=== PATIENT | female | born 1935 | race Caucasian/White ===

== ENCOUNTER → 2017-12-18 12:42 | Outpatient (CLI) | payer MEDICARE, OTHER, SELFPAY ==
--- NOTE | 2017-12-18 | DI.MRI.S_ITS ---
PROCEDURE: MR CERVICAL SPINE WO CON INDICATIONS: CERVICALAGIA TECHNIQUE: Noncontrast sagittal T1 spin echo and T2 fast spin echo, sagittal STIR, foraminal oblique sagittal T2 fast spin echo, and axial gradient echo or T2 fast spin echo through the cervical spine. COMPARISON: None. FINDINGS: Image quality: Excellent. Alignment and Curvature: There is minimal anterolisthesis seen at C2-C3. There is minimal retrolisthesis seen at C5-C6. Bone Marrow: Marrow demonstrates normal overall signal. Spinal Cord: Visualized spinal cord has normal size and signal. No cerebellar tonsillar herniation. Paraspinous Soft Tissues: No paravertebral masses. Prevertebral soft tissues are normal in thickness. C2-C3: Moderate loss of disc height is seen. Loss of disc signal is seen. A mild degree of generalized disc osteophyte complex is seen. Mild facet joint hypertrophy is seen. No significant neural foraminal or central canal narrowing are seen. C3-C4: Moderate loss of disc height is seen. Loss of disc signal is seen. A mild degree of generalized disc osteophyte complex is seen. Moderate facet hypertrophy is seen, left worse than right. There is mild left-sided and no right-sided neural foraminal narrowing seen and no central canal narrowing is seen. C4-C5: Mild to moderate loss of disc height and disc signal are seen. Mild to moderate disc osteophyte complex is seen, which is eccentric to the right. At least moderate facet hypertrophy is seen. There is moderate to severe bilateral neural foraminal narrowing seen. Moderate central canal narrowing is seen. C5-C6: Moderate loss of disc height is seen. Loss of disc signal is seen. Moderate disc osteophyte complex is seen, which is eccentric to the right. Uncovertebral joint hypertrophy is seen, which is more prominent on the right than on the left. Moderate facet joint hypertrophy is seen. Moderate to severe bilateral neural foraminal narrowing is seen. Moderate to severe central canal narrowing is seen, with associated mass effect upon the ventral spinal cord. C6-C7: Mild to moderate loss of disc height and disc signal are seen in moderate disc osteophyte complex is seen, with a central disc extrusion. The disc extrusion is best demonstrated on series 4 image 6. Uncovertebral joint hypertrophy is seen at this level. Moderate facet joint hypertrophy is seen. There is moderate to severe bilateral neural foraminal narrowing seen, right worse than left. At least moderate central canal narrowing is seen, with mass effect upon the ventral spinal cord. C7-T1: Mild loss of disc height is seen. Loss of disc signal is seen. A mild degree of generalized disc osteophyte complex is seen. No significant neural foraminal or central canal narrowing are seen. IMPRESSION: Multiple levels of cervical spine degenerative change are seen, which are overall most prominent at the C6-C7 level. Dictated by: Manohar Feliciano M.D. on 12/18/2017 at 14:18 Approved by: Manohar Feliciano M.D. on 12/18/2017 at 14:24
== END ==
PROVIDERS: PCP Internal Medicine; Visit Provider Internal Medicine
DX: M50.323 Other cervical disc degeneration at C6-C7 level (principal)
CPT/HCPCS: 72141

== ENCOUNTER → 2017-12-24 08:52 | Outpatient (CLI) | payer MEDICARE, OTHER, SELFPAY ==
[2017-12-24 10:30] LABS: BUN Creatinine Ratio 17.8 (6-22); Blood Urea Nitrogen 16 mg/dL (7-17); Calcium 9.5 mg/dL (8.4-10.2); Carbon Dioxide 29 mmol/L (22-32); Chloride 105 mmol/L (98-107); Cholesterol 188 mg/dL (140-199); Estimated Glomerular Filt Rate > 60.0 mL/min (>60); Glucose 88 mg/dL (80-110); HDL Cholesterol 83 mg/dL (40-60); HEMOLYSIS < 15 (0-50); LDL Cholesterol Calculated 91 mg/dL (<100); Potassium 4.2 mmol/L (3.4-5.1); Sodium 145 mmol/L (137-145); Triglycerides 71 mg/dL (35-150)
[2017-12-24 11:00] LABS: TSH w/ Reflex to FT4 1.57 uIU/mL (0.47-4.68)
== END ==
PROVIDERS: PCP Internal Medicine; Visit Provider Internal Medicine
DX: I10 Essential (primary) hypertension (principal); E03.9 Hypothyroidism, unspecified
CPT/HCPCS: 36415; 80048; 80061; 84443

== ENCOUNTER → 2018-11-21 13:37 | Outpatient (CLI) | payer MEDICARE, OTHER, SELFPAY | PROVIDERS: PCP Physician Assistant; Visit Provider Physician Assistant | DX: Z78.0 Asymptomatic menopausal state (principal); R29.890 Loss of height; Z87.891 Personal history of nicotine dependence; Z82.62 Family history of osteoporosis | CPT/HCPCS: 77080 ==

== ENCOUNTER → 2018-12-09 08:23 | Outpatient (CLI) | payer MEDICARE, OTHER, SELFPAY ==
[2018-12-09 09:44] LABS: Creatinine Urine Random 60.6 mg/dL
[2018-12-09 09:48] LABS: Microalbumi Creatinin Ratio Ur 9.9 ug/mg CR (<30); Microalbumin Urine Random < 0.6 mg/dL (0-1.6)
[2018-12-09 09:50] LABS: Alanine Aminotransferase 16 IU/L (9-52); Albumin 4.4 g/dL (3.5-5.0); Albumin Globulin Ratio 1.4 (1.0-2.8); Alkaline Phosphatase 103 U/L (38-126); Aspartate Aminotransferase 22 IU/L (14-36); Bilirubin Total 1.8 mg/dL (0.2-1.3); Blood Urea Nitrogen 8 mg/dL (7-17); Calcium 9.5 mg/dL (8.4-10.2); Carbon Dioxide 29 mmol/L (22-32); Chloride 103 mmol/L (98-107); Estimated Glomerular Filt Rate > 60.0 mL/min (>60); Globulin 3.1 g/dL (1.7-4.1); Glucose 86 mg/dL (80-110); HEMOLYSIS < 15 (0-50); Potassium 4.6 mmol/L (3.4-5.1); Sodium 140 mmol/L (137-145); Total Protein 7.5 g/dL (6.3-8.2)
[2018-12-09 10:14] LABS: Thyroid Stimulating Hormone 1.46 uIU/mL (0.47-4.68)
== END ==
PROVIDERS: PCP Physician Assistant; Visit Provider Physician Assistant
DX: G20 Parkinson's disease (principal); I10 Essential (primary) hypertension; Z51.81 Encounter for therapeutic drug level monitoring
CPT/HCPCS: 36415; 80053; 82043; 82570; 84443

== ENCOUNTER → 2019-06-03 11:23 | Outpatient (CLI) | payer MEDICARE, OTHER, SELFPAY ==
--- NOTE | 2019-06-03 | DI.MG.S_ITS ---
BILATERAL DIGITAL SCREENING MAMMOGRAM 3D/2D WITH CAD: 06/03/2019 CLINICAL: Routine screening. Comparison is made to exams dated: 08/05/2012 mammogram, 08/03/2011 mammogram, and 04/20/2010 mammogram - [facility]. The tissue of both breasts is heterogeneously dense. This may lower the sensitivity of mammography. Current study was also evaluated with a Computer Aided Detection (CAD) system. No significant masses, calcifications, or other findings are seen in either breast. There has been no significant interval change. IMPRESSION: NEGATIVE There is no mammographic evidence of malignancy. A 1 year screening mammogram is recommended. This exam was interpreted at Station ID: [id number]. NOTE: For mammograms, a report in lay terms will be sent to the patient. Approximately 15% of breast malignancies will not be visualized mammographically. In the management of a palpable breast mass, a negative mammogram must not discourage biopsy of a clinically suspicious lesion. Electronically Signed By: Mk [email or web address]/kaz:06/03/2019 19:32:16 letter sent: Normal Exam ACR BI-RADS Category 1: Negative [id number]
== END ==
PROVIDERS: PCP Physician Assistant; Referring Provider Physician Assistant; Visit Provider Physician Assistant
DX: Z12.31 Encounter for screening mammogram for malignant neoplasm of breast (principal)
CPT/HCPCS: 77063; 77067

== ENCOUNTER → 2020-03-31 13:30 | Outpatient (CLI) | payer MEDICARE, OTHER, SELFPAY ==
[2020-03-31 15:06] LABS: HEMOLYSIS < 15 (0-50); Iron 127 ug/dL (37-170)
[2020-03-31 15:17] LABS: Percent Iron Saturation 39 % (15-50); Total Iron Binding Capacity 323 ug/dL (265-497); Transferrin 256 mg/dL (206-381)
[2020-03-31 15:38] LABS: Ferritin 40 ng/mL (11-264)
== END ==
PROVIDERS: PCP Physician Assistant; Referring Provider Physician Assistant; Visit Provider Physician Assistant
DX: R79.0 Abnormal level of blood mineral (principal)
CPT/HCPCS: 36415; 82728; 83540; 83550

== ENCOUNTER → 2020-07-13 11:39 | Outpatient (CLI) | payer MEDICARE, OTHER, SELFPAY ==
[2020-07-13 12:39] LABS: Add Manual Diff / Slide Review NO; Basophils Absolute Auto 100 /uL (0-100); Basophils Percent Auto 1.3 % (0-2); Eosinophils Absolute Auto 100 /uL (0-450); Eosinophils Percent Auto 1.6 % (2-4); Hemoglobin 12.4 g/dL (12.0-16.0); Lymphocytes Absolute Auto 1600 /uL (1100-4500); Lymphocytes Percent Auto 26.8 % (25-40); Mean Corpuscular HGB Conc 33.6 % (30-36); Mean Corpuscular Hemoglobin 32.4 PG (26-34); Mean Corpuscular Volume 96.4 fL (80-100); Monocytes Absolute Auto 600 /uL (0-900); Monocytes Percent Auto 9.7 % (3-14); Neutrophils Absolute Auto 3700 /uL (1500-7000); Neutrophils Percent Auto 60.6 % (50-75); Platelet Count 269 X10^3/uL (150-400); Red Blood Cell Count 3.84 X10^6/uL (4.0-5.2); Red Cell Distribution Width 12.3 % (11.6-14.8); White Blood Cell Count 6.1 X10^3/uL (4.5-11.0)
[2020-07-13 13:18] LABS: Total Iron Binding Capacity 191 ug/dL (265-497)
[2020-07-13 13:29] LABS: Ferritin 46 ng/mL (11-264)
[2020-07-13 14:31] LABS: Iron 162 ug/dL (37-170)
--- NOTE | 2020-08-09 08:02 | P.HOLT.S_ITS ---
[employer] Report Referral & Results Date Patient Seen: 07/13/20 Requesting provider: Cally Garsia Indication: Palpitations Duration of monitoring (days): 12 Diary information: There were 25 patient triggered events and 13 patient diary entries Patient triggered events were associated with (within 45 seconds) sinus rhythm, SVT, PVCs, PACs, ventricular bigeminy, and ventricular trigeminy Patient diary entries were associated with (within 45 seconds) sinus rhythm, PACs, PVCs, and ventricular trigeminy Data: Less than 1% of identified beats were supraventricular ectopic in origin Approximately 1.5% of identified beats were ventricular ectopic in origin which would classify them as occasional, this included a 56.2nd run of ventricular trigeminy and a 2nd run of ventricular bigeminy There were 17 runs of SVT with the fastest being 20 beats at a rate of 187 beats per minute, and the longest lasting 17 beats at a rate of 96 beats per minute which suggest more atrial tachycardia than true SVT 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 Clinical correlation suggested
== END ==
PROVIDERS: PCP Physician Assistant; Referring Provider Physician Assistant; Visit Provider Physician Assistant
DX: R00.2 Palpitations (principal); D64.9 Anemia, unspecified
CPT/HCPCS: 36415; 82728; 83540; 83550; 85025; 93246; 93248

== ENCOUNTER → 2020-10-20 08:14 | Outpatient (CLI) | payer MEDICARE, OTHER, SELFPAY ==
[2020-10-20 09:31] LABS: Alanine Aminotransferase 4 IU/L (<35); Albumin 4.3 g/dL (3.5-5.0); Albumin Globulin Ratio 1.7 (1.0-2.8); Alkaline Phosphatase 104 U/L (38-126); Aspartate Aminotransferase 25 IU/L (14-36); BUN Creatinine Ratio 16.9 (6-22); Bilirubin Total 2.4 mg/dL (0.2-1.3); Blood Urea Nitrogen 12 mg/dL (7-17); Calcium 9.9 mg/dL (8.4-10.2); Carbon Dioxide 27 mmol/L (22-32); Chloride 104 mmol/L (98-107); Cholesterol 182 mg/dL (140-199); Estimated Glomerular Filt Rate > 60.0 mL/min (>60); Globulin 2.6 g/dL (1.7-4.1); Glucose 92 mg/dL (80-110); HDL Cholesterol 101 mg/dL (40-60); HEMOLYSIS < 15 (0-50); LDL Cholesterol Calculated 67 mg/dL (<100); Potassium 4.3 mmol/L (3.4-5.1); Sodium 139 mmol/L (137-145); Total Protein 6.9 g/dL (6.3-8.2); Triglycerides 70 mg/dL (35-150)
[2020-10-20 10:33] LABS: Creatinine Urine Random 50.4 mg/dL
[2020-10-20 10:39] LABS: Microalbumi Creatinin Ratio Ur 17.8 ug/mg CR (<30); Microalbumin Urine Random 0.9 mg/dL (0-1.6)
== END ==
PROVIDERS: PCP Nurse Practitioner; Referring Provider Nurse Practitioner; Visit Provider Nurse Practitioner
DX: E03.9 Hypothyroidism, unspecified (principal); E78.5 Hyperlipidemia, unspecified; E80.4 Gilbert syndrome; I10 Essential (primary) hypertension; I49.9 Cardiac arrhythmia, unspecified; Z79.899 Other long term (current) drug therapy
CPT/HCPCS: 36415; 80053; 80061; 82043; 82570; 84443

== ENCOUNTER → 2020-10-24 14:41 | Outpatient (CLI) | payer MEDICARE, OTHER, SELFPAY ==
--- NOTE | 2020-10-24 14:44 | DI.US.S_ITS ---
PROCEDURE: US CAROTID DOPPLER BI INDICATIONS: RETINAL HEMORRHAGE TECHNIQUE: Color and pulse Doppler interrogation was performed of both carotid systems, with image documentation and velocity measurements. COMPARISON: None. FINDINGS: Stenosis calculations are based on SRU (Society of Radiologists in Ultrasound) criteria. Right side: Brachial blood pressure: 157/84 mm Hg. Common carotid artery peak systolic velocity: 75 cm/sec. Internal carotid artery peak systolic velocity: 58 cm/sec. Internal carotid artery end diastolic velocity: 16 cm/sec. External carotid artery peak systolic velocity: 76 cm/sec. ICA/CCA peak systolic ratio: 0 point . Rebollar scale imaging description: Mild calcific plaque at the bifurcation Percent internal carotid artery stenosis: Less than 50% . Vertebral artery: Flow direction is antegrade. Left side: Brachial blood pressure: 152/81 mm Hg. Common carotid artery peak systolic velocity: 1 L3 cm/sec. Internal carotid artery peak systolic velocity: 53 cm/sec. Internal carotid artery end diastolic velocity: 17 cm/sec. External carotid artery peak systolic velocity: 85 cm/sec. ICA/CCA peak systolic ratio: 0.5 . Rebollar scale imaging description: Mild calcific plaque at the bifurcation Percent internal carotid artery stenosis: Less than 50% . Vertebral artery: Flow direction is antegrade. IMPRESSION: 1. Less than 50% bilateral internal carotid artery stenosis . 2. Antegrade vertebral artery flow bilaterally. Dictated by: Vee Becerra M.D. on 10/25/2020 at 11:31 Approved by: Vee Becerra M.D. on 10/25/2020 at 11:32
== END ==
PROVIDERS: PCP Nurse Practitioner; Referring Provider Nurse Practitioner; Visit Provider Nurse Practitioner
DX: I65.23 Occlusion and stenosis of bilateral carotid arteries (principal); H35.60 Retinal hemorrhage, unspecified eye
CPT/HCPCS: 93880

== ENCOUNTER 2021-01-25 12:41 | Emergency (ER) | payer MEDICARE, OTHER, SELFPAY ==
[2021-01-25] VITALS (8 sets, daily range): BP systolic 172–183; BP diastolic 77–79; PULSE 68–77; RESP 14–20; TEMP 36.9; O2SAT 97–100; BMI 21.7
[2021-01-25 13:17] LABS: Add Manual Diff / Slide Review NO; Basophils Absolute Auto 0 /uL (0-100); Basophils Percent Auto 0.7 % (0-2); Eosinophils Absolute Auto 0 /uL (0-450); Eosinophils Percent Auto 0.4 % (2-4); Hematocrit 38.7 % (36-46); Hemoglobin 12.9 g/dL (12.0-16.0); Lymphocytes Absolute Auto 1600 /uL (1100-4500); Lymphocytes Percent Auto 24.8 % (25-40); Mean Corpuscular HGB Conc 33.3 % (30-36); Mean Corpuscular Volume 95.9 fL (80-100); Monocytes Absolute Auto 800 /uL (0-900); Monocytes Percent Auto 11.9 % (3-14); Neutrophils Absolute Auto 4100 /uL (1500-7000); Neutrophils Percent Auto 62.2 % (50-75); Platelet Count 290 X10^3/uL (150-400); Red Blood Cell Count 4.03 X10^6/uL (4.0-5.2); Red Cell Distribution Width 12.2 % (11.6-14.8); White Blood Cell Count 6.6 X10^3/uL (4.5-11.0)
[2021-01-25 13:27] LABS: COVID19 -Nasal RAPID Negative (Negative)
[2021-01-25] MEDS: SODIUM CHLORIDE 0.9% 500 ML 1000 ML IV (13:35)
[2021-01-25 13:39] LABS: Alanine Aminotransferase 12 IU/L (<35); Albumin 4.7 g/dL (3.5-5.0); Albumin Globulin Ratio 1.6 (1.0-2.8); Alkaline Phosphatase 96 U/L (38-126); Aspartate Aminotransferase 25 IU/L (14-36); BUN Creatinine Ratio 17.6 (6-22); Bilirubin Total 2.6 mg/dL (0.2-1.3); Blood Urea Nitrogen 13 mg/dL (7-17); Carbon Dioxide 27 mmol/L (22-32); Chloride 102 mmol/L (98-107); Estimated Glomerular Filt Rate > 60.0 mL/min (>60); Glucose 91 mg/dL (80-110); HEMOLYSIS < 15 (0-50); Lipase 67 U/L (23-300); Potassium 4.1 mmol/L (3.4-5.1); Sodium 138 mmol/L (137-145); Total Protein 7.7 g/dL (6.3-8.2)
[2021-01-25 13:40] LABS: Creatine Kinase 43 U/L (30-135); Magnesium 1.9 mg/dL (1.6-2.3)
--- NOTE | 2021-01-25 13:44 | ED.SYNCOPE ---
HPI - Syncope <Kasey Ho, KILN LABOURER-BC - Last Filed: 01/25/21 17:55> General Chief Complaint: Syncope Stated Complaint: possible syncope last night [facility] ref Time Seen by Provider: 01/25/21 12:52 Source: patient Mode of arrival: Family Vehicle Limitations: no limitations History of Present Illness HPI narrative: The patient is an 85-year-old female nonsmoker with history of Parkinson's disease who presents with a chief complaint of possible syncope last night. She states she was in the shower, felt woozy, so she ?threw herself on the bed.She states she passed out for approximately 30 minutes. However she knew what to look for because she is ?and experienced fainter.She notes that she had some hot and cold flashes before this happened, so her primary concern is COVID. She states she is fully vaccinated as COVID. She denies any chest pain shortness of breath, denies any weakness slurred speech or other acute concerns. She states she is here only for COVID test.Her head, states that she was laying on the bed. She states that she realized she fell asleep and left lights on last night, so she thought she would check to make sure she does not have COVID. Related Data Home Medications Medication Instructions Recorded Confirmed acetaminophen 325 mg capsule 325 mg PO Q6H PRN 06/05/18 01/25/21 (Tylenol) carbidopa ER 50 mg-levodopa 200 mg 1 tab PO BEDTIME 10/19/20 01/25/21 tablet,extended release ferrous sulfate 325 mg (65 mg 325 mg PO Q OTHER DAY tab 10/19/20 01/25/21 iron) tablet ropinirole 1 mg tablet 1 mg PO DAILY 10/19/20 01/25/21 Previous Rx's Medication Instructions Recorded carbidopa 25 mg-levodopa 100 mg See Rx Instructions PO TID #180 tab 10/19/20 tablet irbesartan 75 mg tablet 37.5 mg PO DAILY #45 tab 10/19/20 Synthroid 125 mcg tablet 125 mcg PO DAILY #90 tab NS 11/07/20 (levothyroxine) metronidazole 1 % topical gel 1 applic TOP DAILY #60 g 11/07/20 (Metrogel) Allergies Allergy/AdvReac Type Severity Reaction Status Date / Time lactose [LACTOSE] Allergy Intermediate GI upset Verified 01/25/21 12:28 latex [LATEX] Allergy Intermediate Redness Verified 01/25/21 12:28 and swelling Penicillins [PENICILLINS] Allergy Intermediate RASH Verified 01/25/21 12:28 benzocaine [BENZOCAINE] Allergy Mild RASH Verified 01/25/21 12:28 SWELLING iodine [IODINE] Allergy Mild RASH Verified 01/25/21 12:28 cyclosporine [CYCLOSPORINE] AdvReac Severe SHARP EYE Verified 01/25/21 12:28 PAIN Antihistamines - Alkylamine AdvReac Intermediate Profound Verified 01/25/21 12:28 Sun Sensitivity octinoxate [OCTINOXATE] AdvReac Intermediate Redness Verified 01/25/21 12:28 and swelling oxybenzone [OXYBENZONE] AdvReac Intermediate Redness Unverified 01/25/21 12:28 and swelling Review of Systems <ROBY Maher - Last Filed: 01/25/21 17:55> Review of Systems Narrative: GENERAL: Denies chills, fatigue, malaise, fever, sweats. HEENT: Denies sinus pain, ear pain, sore throat, difficulty swallowing, dizziness. RESPIRATORY: Denies dyspnea, cough, wheezing, hemoptysis, sputum. CARDIOVASCULAR: See HPI GASTROINTESTINAL: Denies nausea, vomiting, abdominal pain, diarrhea, constipation, melena. : Denies dysuria, frequency, incontinence, hematuria, urinary retention. MUSCULOSKELETAL: denies weakness, joint pain, or bony pain SKIN: Denies rash, skin lesions, or other NEUROLOGIC: Denies weakness, headache, numbness, change in speech, confusion, seizures, incoordination. PSYCHIATRIC: No concerning psychosocial issues. 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) Palpitations (08/07/12) Parkinson's disease (~2018) Premature beat (~2015) Rosacea (~1995) Tick fever (~1959) Tuberculosis (~1975) Vertigo (~1999) Surgical History Anesthesia Cataracts, bilateral (~2002) History of bunionectomy (~1995) History of cystoscopy (~1994) History of dilation and curettage (~2009) History of tonsillectomy (~1951) Status post removal of cervix (~1994) Family History Father Aplastic anemia Mother Scleroderma Brother Thrombosis Grandfather Cancer Grandmother Thrombosis Grandfather History of heart attack Grandmother Diabetes mellitus Social History Smoking Status: Former smoker second hand exposure: No alcohol intake: current (glass a wine with dinner every night) substance use type: does not use Smoking Status: Former smoker alcohol intake frequency: 0-2 drinks per day Substance Use Type: does not use Exam <ROBY Maher - Last Filed: 01/25/21 17:55> Narrative Exam Narrative: GENERAL: This is a well-nourished, well-developed patient, in no acute distress HEAD: Atraumatic. Normocephalic. No temporal or scalp tenderness. EYES: Pupils equal round and reactive. Extraocular motions intact. No scleral icterus. No injection or drainage. ENT: Nose without bleeding, purulent drainage or septal hematoma. Throat without erythema, tonsillar hypertrophy or exudate. Uvula midline. Airway patent. NECK: Trachea midline. No JVD or lymphadenopathy. Supple, nontender, no meningeal signs. CARDIOVASCULAR: Regular rate and rhythm RESPIRATORY: Clear to auscultation. Breath sounds equal bilaterally. No wheezes, rales, or rhonchi. No cough. No increased respiratory effort. No accessory muscles strict GASTROINTESTINAL: Abdomen soft, non-tender, nondistended. No hepato-splenomegaly, or palpable masses. No guarding. EXTREMITIES: No clubbing, cyanosis, or edema. No joint tenderness, effusion, or edema noted. BACK: Nontender without deformity or crepitance. No flank tenderness. NEURO: AOx3. Strength is equal upper lower extremities bilaterally. Stable gait. No gross cranial nerve deficit. Clear speech. GCS 15. SKIN: No rash or erythema. Initial Vital Signs Initial Vital Signs: Vital Signs Temperature 98.5 F 01/25/21 12:58 Pulse Rate 72 01/25/21 12:58 Respiratory Rate 20 01/25/21 12:58 Blood Pressure 172/77 H 01/25/21 12:58 Pulse Oximetry 97 01/25/21 12:58 <Walter Velasquez DO - Last Filed: 01/25/21 18:07> Initial Vital Signs Initial Vital Signs: Vital Signs Temperature 98.5 F 01/25/21 12:58 Pulse Rate 72 01/25/21 12:58 Respiratory Rate 20 01/25/21 12:58 Blood Pressure 172/77 H 01/25/21 12:58 Pulse Oximetry 97 01/25/21 12:58 Scores <ROBY Maher - Last Filed: 01/25/21 17:55> GCS Tanika coma scale eye opening: Spontaneous Tanika coma scale verbal response: Orientated Marm[place]uke coma scale motor response: Obey commands Tanika coma scale total score: 15 <Walter Velasquez DO - Last Filed: 01/25/21 18:07> GCS Marmaduke coma scale total score: 15 Course <ROBY Maher - Last Filed: 01/25/21 17:55> Orders Ordered: ED Orders 01/25/21 12:55 COVID19 -Nasal swab/Pre-Proc Stat 01/25/21 12:57 EKG-12 Lead Stat 01/25/21 13:05 Complete Blood Count AUTO DIFF Stat Comprehensive Metabolic Panel Stat Lipase Stat Magnesium Stat Troponin & CK Cardiac Panel Stat 01/25/21 14:27 CT head/brain wo con Stat Discontinued Medications Sodium Chloride (Normal Saline 0.9%) 500 mls @ 1,000 mls/hr IV BOLUS ONE Stop: 01/25/21 13:38 Last Infusion: 01/25/21 14:03 Dose: 0 mls/hr Documented by: Admin: 01/25/21 13:35 Dose: 1,000 mls/hr Documented by: ESTEFANIA Vital Signs Vital signs: Vital Signs - 8 hr 01/25/21 12:58 01/25/21 13:33 01/25/21 14:00 Temperature 98.5 F Pulse Rate 72 68 71 Pulse Rate [Orthostatic Lying] Pulse Rate [Orthostatic Sitting] Pulse Rate [Orthostatic Standing] Respiratory Rate 20 14 14 Blood Pressure 172/77 H Blood Pressure [Orthostatic Lying] Blood Pressure [Orthostatic Sitting] Blood Pressure [Orthostatic Standing] Pulse Oximetry 97 100 100 01/25/21 14:30 01/25/21 14:49 01/25/21 14:50 Temperature Pulse Rate 71 75 75 Pulse Rate [Orthostatic Lying] Pulse Rate [Orthostatic Sitting] Pulse Rate [Orthostatic Standing] Respiratory Rate 18 16 15 Blood Pressure 183/79 H 182/77 H Blood Pressure [Orthostatic Lying] Blood Pressure [Orthostatic Sitting] Blood Pressure [Orthostatic Standing] Pulse Oximetry 100 100 100 01/25/21 14:51 01/25/21 14:53 Temperature Pulse Rate 77 Pulse Rate [Orthostatic Lying] 74 Pulse Rate [Orthostatic Sitting] 73 Pulse Rate [Orthostatic Standing] 76 Respiratory Rate 16 Blood Pressure 178/78 H Blood Pressure [Orthostatic Lying] 183/79 H Blood Pressure [Orthostatic Sitting] 182/77 H Blood Pressure [Orthostatic Standing] 178/78 H Pulse Oximetry 100 <Walter Velasquez, DO - Last Filed: 01/25/21 18:07> Orders Ordered: ED Orders 01/25/21 12:55 COVID19 -Nasal swab/Pre-Proc Stat 01/25/21 12:57 EKG-12 Lead Stat 01/25/21 13:05 Complete Blood Count AUTO DIFF Stat Comprehensive Metabolic Panel Stat Lipase Stat Magnesium Stat Troponin & CK Cardiac Panel Stat 01/25/21 14:27 CT head/brain wo con Stat Discontinued Medications Sodium Chloride (Normal Saline 0.9%) 500 mls @ 1,000 mls/hr IV BOLUS ONE Stop: 01/25/21 13:38 Last Infusion: 01/25/21 14:03 Dose: 0 mls/hr Documented by: Admin: 01/25/21 13:35 Dose: 1,000 mls/hr Documented by: ESTEFANIA Vital Signs Vital signs: Vital Signs - 8 hr 01/25/21 12:58 01/25/21 13:33 01/25/21 14:00 Temperature 98.5 F Pulse Rate 72 68 71 Pulse Rate [Orthostatic Lying] Pulse Rate [Orthostatic Sitting] Pulse Rate [Orthostatic Standing] Respiratory Rate 20 14 14 Blood Pressure 172/77 H Blood Pressure [Orthostatic Lying] Blood Pressure [Orthostatic Sitting] Blood Pressure [Orthostatic Standing] Pulse Oximetry 97 100 100 01/25/21 14:30 01/25/21 14:49 01/25/21 14:50 Temperature Pulse Rate 71 75 75 Pulse Rate [Orthostatic Lying] Pulse Rate [Orthostatic Sitting] Pulse Rate [Orthostatic Standing] Respiratory Rate 18 16 15 Blood Pressure 183/79 H 182/77 H Blood Pressure [Orthostatic Lying] Blood Pressure [Orthostatic Sitting] Blood Pressure [Orthostatic Standing] Pulse Oximetry 100 100 100 01/25/21 14:51 01/25/21 14:53 Temperature Pulse Rate 77 Pulse Rate [Orthostatic Lying] 74 Pulse Rate [Orthostatic Sitting] 73 Pulse Rate [Orthostatic Standing] 76 Respiratory Rate 16 Blood Pressure 178/78 H Blood Pressure [Orthostatic Lying] 183/79 H Blood Pressure [Orthostatic Sitting] 182/77 H Blood Pressure [Orthostatic Standing] 178/78 H Pulse Oximetry 100 MDM - Syncope <SHRUTHI Maher- - Last Filed: 01/25/21 17:55> Lab Data Attestation: I reviewed the patient's lab results. Result diagrams: 01/25/21 13:05 01/25/21 13:05 Labs: Lab Results 01/25/21 01/25/21 01/25/21 Range/Units 12:55 13:05 13:05 WBC 6.6 (4.5-11.0) X10^3/uL RBC 4.03 (4.0-5.2) X10^6/uL Hgb 12.9 (12.0-16.0) g/dL Hct 38.7 (36-46) % MCV 95.9 (80-100) fL MCH 32.0 (26-34) PG MCHC 33.3 (30-36) % RDW 12.2 (11.6-14.8) % Plt Count 290 (150-400) X10^3/uL Neut % (Auto) 62.2 (50-75) % Lymph % (Auto) 24.8 L (25-40) % [place] % (Auto) 11.9 (3-14) % Eos % (Auto) 0.4 L (2-4) % Baso % (Auto) 0.7 (0-2) % Neut # (Auto) 4100 (8866-3025) /uL Lymph # (Auto) 1600 (1145-3420) /uL [place] # (Auto) 800 (0-900) /uL Eos # (Auto) 0 (0-450) /uL Baso # (Auto) 0 (0-100) /uL Sodium 138 (137-145) mmol/L Potassium 4.1 (3.4-5.1) mmol/L Chloride 102 (98-107) mmol/L Carbon Dioxide 27 (22-32) mmol/L BUN 13 (7-17) mg/dL Creatinine 0.74 (0.52-1.04) mg/dL Estimated GFR > 60.0 (>60) mL/min BUN/Creatinine Ratio 17.6 (6-22) Glucose 91 (80-110) mg/dL Calcium 10.0 (8.4-10.2) mg/dL Magnesium (1.6-2.3) mg/dL Total Bilirubin 2.6 H (0.2-1.3) mg/dL AST 25 (14-36) IU/L ALT 12 (<35) IU/L Alkaline Phosphatase 96 (38-126) U/L Total Creatine Kinase (30-135) U/L CK-MB (CK-2) CK-MB (CK-2) Rel Index Troponin I (0.01-0.034) ng/mL Total Protein 7.7 (6.3-8.2) g/dL Albumin 4.7 (3.5-5.0) g/dL Globulin 3.0 (1.7-4.1) g/dL Albumin/Globulin Ratio 1.6 (1.0-2.8) Lipase 67 (23-300) U/L SARS-CoV-2 (PCR) Negative (Negative) 01/25/21 Range/Units 13:05 WBC (4.5-11.0) X10^3/uL RBC (4.0-5.2) X10^6/uL Hgb (12.0-16.0) g/dL Hct (36-46) % MCV (80-100) fL MCH (26-34) PG MCHC (30-36) % RDW (11.6-14.8) % Plt Count (150-400) X10^3/uL Neut % (Auto) (50-75) % Lymph % (Auto) (25-40) % [place] % (Auto) (3-14) % Eos % (Auto) (2-4) % Baso % (Auto) (0-2) % Neut # (Auto) (0198-3193) /uL Lymph # (Auto) (0524-6595) /uL [place] # (Auto) (0-900) /uL Eos # (Auto) (0-450) /uL Baso # (Auto) (0-100) /uL Sodium (137-145) mmol/L Potassium (3.4-5.1) mmol/L Chloride (98-107) mmol/L Carbon Dioxide (22-32) mmol/L BUN (7-17) mg/dL Creatinine (0.52-1.04) mg/dL Estimated GFR (>60) mL/min BUN/Creatinine Ratio (6-22) Glucose (80-110) mg/dL Calcium (8.4-10.2) mg/dL Magnesium 1.9 (1.6-2.3) mg/dL Total Bilirubin (0.2-1.3) mg/dL AST (14-36) IU/L ALT (<35) IU/L Alkaline Phosphatase (38-126) U/L Total Creatine Kinase 43 (30-135) U/L CK-MB (CK-2) TNP CK-MB (CK-2) Rel Index TNP Troponin I < 0.012 (0.01-0.034) ng/mL Total Protein (6.3-8.2) g/dL Albumin (3.5-5.0) g/dL Globulin (1.7-4.1) g/dL Albumin/Globulin Ratio (1.0-2.8) Lipase (23-300) U/L SARS-CoV-2 (PCR) (Negative) Urine Dip Bedside Urine Glucose Negative Bedside Urine Bilirubin - Negative Bedside Urine Ketone - Negative Urine Specific Randolph 1.010 Bedside Urine Occult Blood - Negative Bedside Urine pH 6.5 Bedside Urine Protein - Negative Bedside Urine Urobilinogen +/- 1mg Bedside Urine Nitrite - Negative Bedside Urine Leukocytes - Negative Esterase Imaging Data CT scan - head: Radiologist's Impression: [address] [place] [id number] Scan Report Signed Patient: Yvonne Wallis MR#: [id number] : 1935 Acct:[id number] Age/Sex: 85 / F Date of Service: 01/25/21 Loc: ED Accession Number: [id number] ?? Procedure: CT head/brain wo con Ordering Provider: Kasey Ho [facility] PROCEDURE:? CT HEAD/BRAIN WO CON ? INDICATIONS:? syncope ? TECHNIQUE:? Noncontrast 4.5 mm thick angled axial sections acquired from the foramen magnum to the vertex, with coronal and sagittal reformats.? For radiation dose reduction, the following was used:? automated exposure control, adjustment of mA and/or kV according to patient size.? ? COMPARISON:? None. ? FINDINGS:? Image quality:? Excellent.? ? CSF spaces:? Basal cisterns are patent.? No extra-axial fluid collections.? The ventricles are symmetric in size and shape.? ? Brain:? No intracranial bleeds or masses.? There is cerebral volume loss for age, with resultant ventricular and sulcal prominence.? There are periventricular and deep white matter chronic small vessel ischemic changes.? There is intracranial internal carotid artery atherosclerosis.? ? Skull and face:? Calvarium and visualized facial bones appear intact, without suspicious lesions.? ? Sinuses:? Visualized sinuses and mastoids are clear.? ? IMPRESSION:? No acute intracranial disease process. ? ? Dictated by: Deanna Daniel MD, PhD on 01/25/2021 at 14:45 ? ? Approved by: Deanna Daniel MD, PhD on 01/25/2021 at 14:48?? ECG Data Attestation: I personally reviewed and interpreted this ECG as follows: Interpretation: Normal sinus rhythm. Rate FOOSH rate 69. P.r. interval 194. Viewed by Dr. Ron CHRISTOPHER Narrative Medical decision making narrative: The patient is an 85-year-old female who presents with a chief complaint of syncope last night wanting to make sure she does not have COVID. Her COVID test is negative. Given that she felt presyncopal and then threw herself on the ground, EKG was done with no acute findings. Baseline is CBC CMP are within normal limits, though the patient is noted to have a slightly elevated bilirubin, though is noted to be similar to previous. She is ambulating steadily in the emergency department. She refers to herself as a professional fainter.I spoke with patient's primary care provider, Iris peters to help arrange follow-up cannot find anything in her chart regarding syncope. Head CT was done with no acute findings per her request. I did discuss at length with the patient to follow up with primary care provider and come back to the ER for acute concerns. Patient has no questions or concerns upon discharge states understanding of return precautions as well as follow-up care. <Walter Velasquez, DO - Last Filed: 01/25/21 18:07> Lab Data Labs: Lab Results 01/25/21 01/25/21 01/25/21 Range/Units 12:55 13:05 13:05 WBC 6.6 (4.5-11.0) X10^3/uL RBC 4.03 (4.0-5.2) X10^6/uL Hgb 12.9 (12.0-16.0) g/dL Hct 38.7 (36-46) % MCV 95.9 (80-100) fL MCH 32.0 (26-34) PG MCHC 33.3 (30-36) % RDW 12.2 (11.6-14.8) % Plt Count 290 (150-400) X10^3/uL Neut % (Auto) 62.2 (50-75) % Lymph % (Auto) 24.8 L (25-40) % [place] % (Auto) 11.9 (3-14) % Eos % (Auto) 0.4 L (2-4) % Baso % (Auto) 0.7 (0-2) % Neut # (Auto) 4100 (0305-8574) /uL Lymph # (Auto) 1600 (5258-7237) /uL [place] # (Auto) 800 (0-900) /uL Eos # (Auto) 0 (0-450) /uL Baso # (Auto) 0 (0-100) /uL Sodium 138 (137-145) mmol/L Potassium 4.1 (3.4-5.1) mmol/L Chloride 102 (98-107) mmol/L Carbon Dioxide 27 (22-32) mmol/L BUN 13 (7-17) mg/dL Creatinine 0.74 (0.52-1.04) mg/dL Estimated GFR > 60.0 (>60) mL/min BUN/Creatinine Ratio 17.6 (6-22) Glucose 91 (80-110) mg/dL Calcium 10.0 (8.4-10.2) mg/dL Magnesium (1.6-2.3) mg/dL Total Bilirubin 2.6 H (0.2-1.3) mg/dL AST 25 (14-36) IU/L ALT 12 (<35) IU/L Alkaline Phosphatase 96 (38-126) U/L Total Creatine Kinase (30-135) U/L CK-MB (CK-2) CK-MB (CK-2) Rel Index Troponin I (0.01-0.034) ng/mL Total Protein 7.7 (6.3-8.2) g/dL Albumin 4.7 (3.5-5.0) g/dL Globulin 3.0 (1.7-4.1) g/dL Albumin/Globulin Ratio 1.6 (1.0-2.8) Lipase 67 (23-300) U/L SARS-CoV-2 (PCR) Negative (Negative) 01/25/21 Range/Units 13:05 WBC (4.5-11.0) X10^3/uL RBC (4.0-5.2) X10^6/uL Hgb (12.0-16.0) g/dL Hct (36-46) % MCV (80-100) fL MCH (26-34) PG MCHC (30-36) % RDW (11.6-14.8) % Plt Count (150-400) X10^3/uL Neut % (Auto) (50-75) % Lymph % (Auto) (25-40) % [place] % (Auto) (3-14) % Eos % (Auto) (2-4) % Baso % (Auto) (0-2) % Neut # (Auto) (8358-4236) /uL Lymph # (Auto) (1928-9260) /uL [place] # (Auto) (0-900) /uL Eos # (Auto) (0-450) /uL Baso # (Auto) (0-100) /uL Sodium (137-145) mmol/L Potassium (3.4-5.1) mmol/L Chloride (98-107) mmol/L Carbon Dioxide (22-32) mmol/L BUN (7-17) mg/dL Creatinine (0.52-1.04) mg/dL Estimated GFR (>60) mL/min BUN/Creatinine Ratio (6-22) Glucose (80-110) mg/dL Calcium (8.4-10.2) mg/dL Magnesium 1.9 (1.6-2.3) mg/dL Total Bilirubin (0.2-1.3) mg/dL AST (14-36) IU/L ALT (<35) IU/L Alkaline Phosphatase (38-126) U/L Total Creatine Kinase 43 (30-135) U/L CK-MB (CK-2) TNP CK-MB (CK-2) Rel Index TNP Troponin I < 0.012 (0.01-0.034) ng/mL Total Protein (6.3-8.2) g/dL Albumin (3.5-5.0) g/dL Globulin (1.7-4.1) g/dL Albumin/Globulin Ratio (1.0-2.8) Lipase (23-300) U/L SARS-CoV-2 (PCR) (Negative) Urine Dip Bedside Urine Glucose Negative Bedside Urine Bilirubin - Negative Bedside Urine Ketone - Negative Urine Specific Randolph 1.010 Bedside Urine Occult Blood - Negative Bedside Urine pH 6.5 Bedside Urine Protein - Negative Bedside Urine Urobilinogen +/- 1mg Bedside Urine Nitrite - Negative Bedside Urine Leukocytes - Negative Esterase Discharge Plan Departure Patient Disposition: Home Clinical Impression: Syncope Qualifiers: Syncope type: unspecified Qualified Code(s): R55 - Syncope and collapse Instructions: DI for Syncope in Adults (Fainting) Activity Restrictions/Additional Instructions: Thank you for trusting us with your care today. As discussed, your coronavirus test resulted negative. your head CT did not have any abnormalities, there is no sign of urine infection. Please follow-up with primary care provider next few days. I spoke with Iris peters, her office will be reaching out to you. In the meantime please rest please come back to the emergency department for any acute concerns Prescriptions: No Action acetaminophen [Tylenol] 325 mg capsule 325 mg PO Q6H PRNRF: 0 carbidopa-levodopa 25-100 mg tablet See Rx Instructions PO TID Qty: 180 RF: 3 ferrous sulfate 325 mg (65 mg iron) tablet 325 mg PO Q OTHER DAY RF: 0 irbesartan 75 mg tablet 37.5 mg PO DAILY Qty: 45 RF: 3 ropinirole 1 mg tablet 1 mg PO DAILY RF: 0 carbidopa-levodopa 50-200 mg tablet extended release 1 tab PO BEDTIME RF: 0 levothyroxine [Synthroid] 125 mcg tablet 125 mcg PO DAILY Qty: 90 RF: 3 metronidazole [Metrogel] 1 % gel 1 applic TOP DAILY Qty: 60 RF: 11 Referrals: Iris Peters ARNP [Primary Care Provider] - <Walter Velasquez, - Last Filed: 01/25/21 18:07> Cosign ED Attending Cosignature Attestation: Dr Velasquez Co-Sign Statement: I was available for consultation during this patient's emergency department visit. This chart is signed by myself for administrative purposes only. I did not have direct contact with this patient during this visit. They were seen independently by the APC.
[2021-01-25 13:51] LABS: Troponin I < 0.012 ng/mL (0.01-0.034)
--- NOTE | 2021-01-25 14:27 | DI.CT.S_ITS ---
PROCEDURE: CT HEAD/BRAIN WO CON INDICATIONS: syncope TECHNIQUE: Noncontrast 4.5 mm thick angled axial sections acquired from the foramen magnum to the vertex, with coronal and sagittal reformats. For radiation dose reduction, the following was used: automated exposure control, adjustment of mA and/or kV according to patient size. COMPARISON: None. FINDINGS: Image quality: Excellent. CSF spaces: Basal cisterns are patent. No extra-axial fluid collections. The ventricles are symmetric in size and shape. Brain: No intracranial bleeds or masses. There is cerebral volume loss for age, with resultant ventricular and sulcal prominence. There are periventricular and deep white matter chronic small vessel ischemic changes. There is intracranial internal carotid artery atherosclerosis. Skull and face: Calvarium and visualized facial bones appear intact, without suspicious lesions. Sinuses: Visualized sinuses and mastoids are clear. IMPRESSION: No acute intracranial disease process. Dictated by: Deanna Daniel MD, PhD on 01/25/2021 at 14:45 Approved by: Deanna Daniel MD, PhD on 01/25/2021 at 14:48
== END 2021-01-25 15:35 | disposition home or self-care (01) ==
PROVIDERS: Emergency Medicine; Emergency Provider Nurse Practitioner Family; PCP Nurse Practitioner
DX: R55 Syncope and collapse (principal); R07.9 Chest pain, unspecified; Z20.822 Contact with and (suspected) exposure to COVID-19
CPT/HCPCS: 36415; 70450; 80053; 81003; 82550; 83690; 83735; 84484; 85025; 87635; 93005; 93010; 99284; C9803

== ENCOUNTER → 2021-02-01 12:04 | Outpatient (CLI) | payer MEDICARE, OTHER, SELFPAY ==
--- NOTE | 2021-02-01 12:06 | DI.RAD.S_ITS ---
PROCEDURE: XR DEXA AXIAL SKELETON INDICATIONS: post menopausal osteoporosis COMPARISON: [facility], CR, XR DEXA AXIAL SKELETON, 11/21/2018, 14:05. FINDINGS: This blank DEXA report has been sent in error by the PACS system. The correct and complete report will be forthcoming in 1-2 days. Thank you for your patience and understanding. Dictated by: Deanna Daniel MD, PhD on 02/01/2021 at 16:53 Approved by: Deanna Daniel MD, PhD on 02/01/2021 at 16:53
[2021-02-01 14:55] LABS: Thyroid Stimulating Hormone < 0.015 uIU/mL (0.47-4.68)
== END ==
PROVIDERS: PCP Nurse Practitioner; Referring Provider Nurse Practitioner; Visit Provider Nurse Practitioner
DX: Z78.0 Asymptomatic menopausal state (principal); M85.852 Other specified disorders of bone density and structure, left thigh; E03.9 Hypothyroidism, unspecified; Z79.899 Other long term (current) drug therapy; Z87.891 Personal history of nicotine dependence; Z82.62 Family history of osteoporosis
CPT/HCPCS: 36415; 77080; 84443

== ENCOUNTER → 2021-04-17 10:10 | Outpatient (CLI) | payer MEDICARE, OTHER, SELFPAY ==
[2021-04-17 12:17] LABS: Free T4, Direct Thyroxine 1.73 ng/dL (0.78-2.19)
[2021-04-17 12:31] LABS: Thyroid Stimulating Hormone 0.078 uIU/mL (0.47-4.68)
== END ==
PROVIDERS: PCP Nurse Practitioner; Referring Provider Nurse Practitioner; Visit Provider Nurse Practitioner
DX: E03.9 Hypothyroidism, unspecified (principal); Z79.899 Other long term (current) drug therapy; R68.89 Other general symptoms and signs
CPT/HCPCS: 36415; 84439; 84443; 84481

== ENCOUNTER → 2021-05-09 12:35 | Outpatient (CLI) | payer MEDICARE, OTHER, SELFPAY ==
[2021-05-09 13:43] LABS: BUN Creatinine Ratio 17.6 (6-22); Blood Urea Nitrogen 19 mg/dL (7-17); Calcium 9.9 mg/dL (8.4-10.2); Carbon Dioxide 28 mmol/L (22-32); Chloride 102 mmol/L (98-107); Estimated Glomerular Filt Rate 48.5 mL/min (>60); Glucose 147 mg/dL (80-110); HEMOLYSIS 23 (0-50); Magnesium 1.7 mg/dL (1.6-2.3); Potassium 4.2 mmol/L (3.4-5.1); Sodium 137 mmol/L (137-145)
[2021-05-09 14:10] LABS: Thyroid Stimulating Hormone 3.75 uIU/mL (0.47-4.68)
== END ==
PROVIDERS: PCP Nurse Practitioner; Referring Provider Nurse Practitioner; Visit Provider Nurse Practitioner
DX: E03.9 Hypothyroidism, unspecified (principal); G47.62 Sleep related leg cramps
CPT/HCPCS: 36415; 80048; 83735; 84443

== ENCOUNTER 2021-05-30 07:30 | Emergency (ER) | payer MEDICARE, OTHER, SELFPAY ==
[2021-05-30] VITALS (8 sets, daily range): BP systolic 146–157; BP diastolic 67–97; PULSE 64–72; RESP 15–35; TEMP 36.8; O2SAT 98–100; BMI 20.2
--- NOTE | 2021-05-30 07:52 | DI.RAD.S_ITS ---
PROCEDURE: XR CHEST 1V INDICATIONS: chest pain TECHNIQUE: One view of the chest was acquired. COMPARISON: None. FINDINGS: Surgical changes and devices: None. Lungs and pleura: Lungs are mildly hyperexpanded and clear. Mild chronic scarring is seen in the right lung apex. No pleural effusions or pneumothorax. Linear opacities projecting over the lung apices and surrounding soft tissues is most likely related to the patient's hair or clothing. Mediastinum: Mediastinal contours appear normal. Heart size is normal. Bones and chest wall: No suspicious bony lesions. Overlying soft tissues appear unremarkable. IMPRESSION: No acute cardiopulmonary abnormality. Dictated by: Tony Ortega M.D. on 05/30/2021 at 8:45 Approved by: Tony Ortega M.D. on 05/30/2021 at 8:47
[2021-05-30 07:59] LABS: Add Manual Diff / Slide Review NO; Basophils Absolute Auto 0 /uL (0-100); Basophils Percent Auto 0.6 % (0-2); Eosinophils Absolute Auto 100 /uL (0-450); Hematocrit 36.9 % (36-46); Hemoglobin 12.6 g/dL (12.0-16.0); Lymphocytes Absolute Auto 1800 /uL (1100-4500); Lymphocytes Percent Auto 22.9 % (25-40); Mean Corpuscular HGB Conc 34.2 % (30-36); Mean Corpuscular Hemoglobin 32.6 PG (26-34); Mean Corpuscular Volume 95.2 fL (80-100); Monocytes Absolute Auto 800 /uL (0-900); Monocytes Percent Auto 10.7 % (3-14); Neutrophils Absolute Auto 5000 /uL (1500-7000); Neutrophils Percent Auto 64.8 % (50-75); Platelet Count 264 X10^3/uL (150-400); Red Blood Cell Count 3.87 X10^6/uL (4.0-5.2); Red Cell Distribution Width 12.8 % (11.6-14.8); White Blood Cell Count 7.6 X10^3/uL (4.5-11.0)
[2021-05-30 08:07] LABS: Alanine Aminotransferase 7 IU/L (<35); Albumin 4.6 g/dL (3.5-5.0); Albumin Globulin Ratio 1.6 (1.0-2.8); Alkaline Phosphatase 79 U/L (38-126); Aspartate Aminotransferase 32 IU/L (14-36); BUN Creatinine Ratio 22.9 (6-22); Blood Urea Nitrogen 19 mg/dL (7-17); Calcium 9.8 mg/dL (8.4-10.2); Carbon Dioxide 29 mmol/L (22-32); Chloride 103 mmol/L (98-107); Creatine Kinase 99 U/L (30-135); Estimated Glomerular Filt Rate > 60.0 mL/min (>60); Globulin 2.9 g/dL (1.7-4.1); Glucose 94 mg/dL (80-110); HEMOLYSIS < 15 (0-50); Lipase 69 U/L (23-300); Magnesium 1.9 mg/dL (1.6-2.3); Potassium 3.8 mmol/L (3.4-5.1); Sodium 137 mmol/L (137-145); Total Protein 7.5 g/dL (6.3-8.2)
--- NOTE | 2021-05-30 08:17 | ED_ITS ---
HPI - Weakness General Chief complaint: Weakness Stated complaint: weakness Time Seen by Provider: 05/30/21 08:04 Source: patient Mode of arrival: Family Vehicle History of Present Illness HPI Narrative: 85F Former smoker with history of Parkinson's presents because she has been feeling increasingly weak over the past few days. She denies any change in medications or diet does state that she felt thirsty when she woke up this morning. She states that she gets a little dizzy upon standing and that will improve after she takes a few steps. She ambulates normally with a walking stick which is what she has been doing recently. She denies fever chills nor runny nose, sore throat or cough. She has had no chest pain or shortness of breath. She denies nausea, vomiting or diarrhea. She denies any one-sided numbness, tingling or weakness. She states that her weakness she feels like is her whole body it is not 1 particular area. She has not had any falls. Related Data Home Medications Medication Instructions Recorded Confirmed acetaminophen 325 mg capsule 325 mg PO Q6H PRN 06/05/18 02/02/21 (Tylenol) ferrous sulfate 325 mg (65 mg 325 mg PO Q OTHER DAY tab 10/19/20 02/02/21 iron) tablet cholecalciferol (vitamin D3) 50 50 mcg PO BID cap 02/02/21 02/02/21 mcg (2,000 unit) capsule carbidopa ER 50 mg-levodopa 200 mg 2 tab PO BEDTIME tab 04/13/21 04/13/21 tablet,extended release Previous Rx's Medication Instructions Recorded carbidopa 25 mg-levodopa 100 mg See Rx Instructions PO TID #180 tab 10/19/20 tablet irbesartan 75 mg tablet 37.5 mg PO DAILY #45 tab 10/19/20 metronidazole 1 % topical gel 1 applic TOP DAILY #60 g 11/07/20 (Metrogel) Disabled Parking Permit See Rx Instructions .ROUTE 04/17/21 .COMPLEX #1 unit levothyroxine 100 mcg tablet 100 mcg PO DAILY #90 tab 04/17/21 (Synthroid) magnesium oil 1 spray TOPICAL 4-6XD PRN #150 ml 04/21/21 lactase 9,000 unit tablet (Lactaid 9,000 unit PO ONCE #60 tab 05/26/21 Fast Act) rasagiline 1 mg tablet 1 mg PO DAILY #90 tab 05/26/21 Allergies Allergy/AdvReac Type Severity Reaction Status Date / Time lactose [LACTOSE] Allergy Intermediate GI upset Verified 01/25/21 12:28 latex [LATEX] Allergy Intermediate Redness Verified 01/25/21 12:28 and swelling Penicillins [PENICILLINS] Allergy Intermediate RASH Verified 01/25/21 12:28 benzocaine [BENZOCAINE] Allergy Mild RASH Verified 01/25/21 12:28 SWELLING iodine [IODINE] Allergy Mild RASH Verified 01/25/21 12:28 cyclosporine [CYCLOSPORINE] AdvReac Severe SHARP EYE Verified 01/25/21 12:28 PAIN Antihistamines - Alkylamine AdvReac Intermediate Profound Verified 01/25/21 12:28 Sun Sensitivity levothyroxine AdvReac Intermediate Sun Verified 02/02/21 11:29 sensativity - MUST USE NAME BRAND SYNTHROID. octinoxate [OCTINOXATE] AdvReac Intermediate Redness Verified 01/25/21 12:28 and swelling oxybenzone [OXYBENZONE] AdvReac Intermediate Redness Unverified 01/25/21 12:28 and swelling Review of Systems Review of Systems Narrative: GENERAL: See HP HEENT: Denies sinus pain, ear pain, sore throat, difficulty swallowing, dizzine ss. RESPIRATORY: Denies dyspnea, cough, wheezing, hemoptysis, sputum. CARDIOVASCULAR: Denies chest pain, palpitations, orthopnea, edema, GASTROINTESTINAL: Denies nausea, vomiting, abdominal pain, diarrhea, constipation, melena. : Denies dysuria, frequency, incontinence, hematuria, urinary retention. MUSCULOSKELETAL: denies weakness, joint pain, or bony pain SKIN: Denies rash, skin lesions, or other NEUROLOGIC: See HPI PSYCHIATRIC: No concerning psychosocial issues. 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) Palpitations (08/07/12) Parkinson's disease (~2018) Premature beat (~2015) Rosacea (~1995) Tick fever (~1959) Tuberculosis (~1975) Vertigo (~1999) Surgical History Anesthesia Cataracts, bilateral (~2002) History of bunionectomy (~1995) History of cystoscopy (~1994) History of dilation and curettage (~2009) History of tonsillectomy (~1951) Status post removal of cervix (~1994) Family History Father Aplastic anemia Mother Scleroderma Brother Thrombosis Grandfather Cancer Grandmother Thrombosis Grandfather History of heart attack Grandmother Diabetes mellitus Social History Smoking Status: Former smoker second hand exposure: No alcohol intake: current substance use type: does not use Smoking Status: Former smoker alcohol intake frequency: 0-2 drinks per day Substance Use Type: does not use Exam Narrative Exam Narrative: GENERAL: 85 year old patient appears stated age. Well-developed patient, in mild distress. HEAD: Atraumatic. Normocephalic. EYES: Pupils equal round and reactive. Extraocular motions intact. No scleral icterus. No injection or drainage. ENT: Dry mucous membranes Nose without bleeding, purulent drainage. Throat without erythema, tonsillar hypertrophy or exudate. Airway patent. NECK: Trachea midline. Non tender CARDIOVASCULAR: Regular rate and rhythm without murmurs, gallops, or rubs. RESPIRATORY: Clear to auscultation. Breath sounds equal bilaterally. No wheezes, rales, or rhonchi. GASTROINTESTINAL: Abdomen soft, non-tender, nondistended. EXTREMITIES: No edema or joint tenderness. BACK: Nontender without deformity or crepitance. No flank tenderness. NEURO: AOx3. SKIN: Poor skin turgor, No rash or erythema of visible areas Initial Vital Signs Initial Vital Signs: Vital Signs Temperature 98.2 F 05/30/21 07:25 Pulse Rate 71 05/30/21 07:25 Respiratory Rate 18 05/30/21 07:25 Blood Pressure 157/74 H 05/30/21 07:25 Pulse Oximetry 100 05/30/21 07:25 Course Orders Ordered: ED Orders 05/30/21 10:12 COVID19 -Nasal swab/Pre-Proc Stat Discontinued Medications Sodium Chloride (Normal Saline 0.9%) 1,000 mls @ 1,000 mls/hr IV BOLUS ONE Stop: 05/30/21 09:18 Last Infusion: 05/30/21 11:05 Dose: 0 mls/hr Documented by: Admin: 05/30/21 08:38 Dose: 1,000 mls/hr Documented by: JUAN Vital Signs Vital signs: Vital Signs - 8 hr 05/30/21 11:45 Pulse Rate 64 Respiratory Rate 18 Blood Pressure 146/79 H Pulse Oximetry 98 MDM - Weakness Lab Data Result diagrams: 05/30/21 07:15 05/30/21 07:15 Labs: Lab Results 05/30/21 05/30/21 05/30/21 Range/Units 07:15 07:15 10:12 WBC 7.6 (4.5-11.0) X10^3/uL RBC 3.87 L (4.0-5.2) X10^6/uL Hgb 12.6 (12.0-16.0) g/dL Hct 36.9 (36-46) % MCV 95.2 (80-100) fL MCH 32.6 (26-34) PG MCHC 34.2 (30-36) % RDW 12.8 (11.6-14.8) % Plt Count 264 (150-400) X10^3/uL Neut % (Auto) 64.8 (50-75) % Lymph % (Auto) 22.9 L (25-40) % [place] % (Auto) 10.7 (3-14) % Eos % (Auto) 1.0 L (2-4) % Baso % (Auto) 0.6 (0-2) % Neut # (Auto) 5000 (1724-7551) /uL Lymph # (Auto) 1800 (0202-2985) /uL [place] # (Auto) 800 (0-900) /uL Eos # (Auto) 100 (0-450) /uL Baso # (Auto) 0 (0-100) /uL Sodium 137 (137-145) mmol/L Potassium 3.8 (3.4-5.1) mmol/L Chloride 103 (98-107) mmol/L Carbon Dioxide 29 (22-32) mmol/L BUN 19 H (7-17) mg/dL Creatinine 0.83 (0.52-1.04) mg/dL Estimated GFR > 60.0 (>60) mL/min BUN/Creatinine Ratio 22.9 H (6-22) Glucose 94 (80-110) mg/dL Calcium 9.8 (8.4-10.2) mg/dL Magnesium 1.9 (1.6-2.3) mg/dL Total Bilirubin 3.0 H (0.2-1.3) mg/dL AST 32 (14-36) IU/L ALT 7 (<35) IU/L Alkaline Phosphatase 79 (38-126) U/L Total Creatine Kinase 99 (30-135) U/L CK-MB (CK-2) TNP CK-MB (CK-2) Rel Index TNP Troponin I 0.025 (0.01-0.034) ng/mL Total Protein 7.5 (6.3-8.2) g/dL Albumin 4.6 (3.5-5.0) g/dL Globulin 2.9 (1.7-4.1) g/dL Albumin/Globulin Ratio 1.6 (1.0-2.8) Lipase 69 (23-300) U/L SARS-CoV-2 (PCR) Negative (Negative) Urine Dip Bedside Urine Glucose Negative Bedside Urine Bilirubin - Negative Bedside Urine Ketone - Negative Urine Specific [place] 1.015 Bedside Urine Occult Blood - Negative Bedside Urine pH 6.0 Bedside Urine Protein - Negative Bedside Urine Urobilinogen - Negative Bedside Urine Nitrite - Negative Bedside Urine Leukocytes - Negative Esterase MDM Narrative Medical decision making narrative: Patient presents feeling slightly more weak than normal and complaining of thirst. She has dry mucous membranes and poor skin turgor. History, physical exam, labs and response to therapies are very reassuring. After fluids she feels significant if not total improvement, ambulates the department without difficulty. She is given return precautions and questions have been answered to her apparent satisfaction Discharge Plan Departure Patient Disposition: Home Clinical Impression: Acute dehydration Instructions: DI for Dehydration -- Adult Activity Restrictions/Additional Instructions: *You have been diagnosed with [mild dehydration. Your history and physical exam as well as labs and response to therapy are very reassuring. *What to do: *Please continue to take your regular medications as directed. [ ] New medication prescriptions sent to your pharmacy: [ ] [ ] New medication written as a paper prescription [x ] No new medications given *Please follow up with your primary care provider in 2-3 days, call for an appointment. Let them know you were seen in the Emergency Department and that we ask that you be seen in follow up. We will electronically transmit a record of today's note if your PCP is in our system *If you do not have a primary care provider please contact the [facility] Resource line at [phone]. They will ask some questions about your medical history and help get you set up with a doctor in the community. *Return to Emergency Department if you should have any new, worsening or concerning symptoms, such as [fever greater than 101 F, shaking chills, wor sening pain, persistent vomiting or other bothersome symptoms] Prescriptions: No Action acetaminophen [Tylenol] 325 mg capsule 325 mg PO Q6H PRN0RF levothyroxine [Synthroid] 100 mcg tablet 100 mcg PO DAILY Qty: 90 1RF Rx Instructions: Take 1 tab each morning for thyroid replacement carbidopa-levodopa 50-200 mg tablet extended release 2 tab PO BEDTIME 0RF Disabled Parking Permit See Rx Instructions .ROUTE .COMPLEX Qty: 1 0RF Rx Instructions: I find this patient to be medically disabled and qualify for disabled parking as indicated and signed on the accompanying disabled parking application for individuals. Lactaid Fast Act 9,000 unit tablet 9,000 unit PO ONCE Qty: 60 3RF Rx Instructions: Take 1 tab prior to ensure type drink up to twice per day rasagiline 1 mg tablet 1 mg PO DAILY Qty: 90 3RF Rx Instructions: Tale 1mg tab daily for Parkinsons symptoms carbidopa-levodopa 25-100 mg tablet See Rx Instructions PO TID Qty: 180 3RF Rx Instructions: 1 tab with breakfast, 1/2 tab with lunch and 1/2 tab with dinner PO TID ferrous sulfate 325 mg (65 mg iron) tablet 325 mg PO Q OTHER DAY 0RF Rx Instructions: Take 1 tab by mouth 3x/week irbesartan 75 mg tablet 37.5 mg PO DAILY Qty: 45 3RF Rx Instructions: Take 1/2 tab (37.5mg) daily for hypertension metronidazole [Metrogel] 1 % gel 1 applic TOP DAILY Qty: 60 11RF cholecalciferol (vitamin D3) 50 mcg (2,000 unit) capsule 50 mcg PO BID 0RF magnesium oil 1 spray topical 4-6XD PRN (Reason: muscle spasms) Qty: 150 3RF Referrals: Iris Peters ARNP [Primary Care Provider] -
[2021-05-30 08:19] LABS: Troponin I 0.025 ng/mL (0.01-0.034)
[2021-05-30] MEDS: SODIUM CHLORIDE 0.9% 1,000 ML 1000 ML IV (08:38)
[2021-05-30 10:37] LABS: COVID19 -Nasal RAPID Negative (Negative)
--- NOTE | 2021-05-30 11:38 | PC.NURSE ---
Pt. passed ambulation trial with FWW and only needing stand by assist and cueing to the hallway bathroom. and RN aware and witnessed.
== END 2021-05-30 11:56 | disposition home or self-care (01) ==
PROVIDERS: Emergency Provider Emergency Medicine; PCP Nurse Practitioner
DX: E86.0 Dehydration (principal); Z87.891 Personal history of nicotine dependence; Z20.822 Contact with and (suspected) exposure to COVID-19
CPT/HCPCS: 71045; 80053; 81003; 82550; 83690; 83735; 84484; 85025; 87635; 93005; 93010; 96360; 96361; 99284; C9803

== ENCOUNTER → 2021-06-16 14:40 | Outpatient (CLI) | payer MEDICARE, OTHER, SELFPAY ==
[2021-06-16 15:18] LABS: Bilirubin Urine UA NEGATIVE (NEGATIVE); Color Urine UA YELLOW; Glucose Urine UA NEGATIVE (Negative); Ketones Urine UA NEGATIVE (NEGATIVE); Leukocyte Esterase Urine UA 2+ (NEGATIVE); Nitrite Urine UA NEGATIVE (Negative); Occult Blood Urine UA NEGATIVE (Negative); Protein Urine UA NEGATIVE (Negative); Urobilinogen Urine UA 0.2 E.U./dL (0.2)
[2021-06-16 15:30] LABS: Appearance Urine UA Slightly Cloudy
[2021-06-16 15:31] LABS: Amorphous Sediment Urine 1+; Bacteria Urine Few (2-10); Culture Indicated Urine Specimen Cultured; Mucus Urine 1+ (Negative); RBC Urine None Seen (0-5/HPF); Squamous Epithelial Cell Urine 1-5 /HPF (0-5/HPF); WBC Urine 10-30/HPF (0-5/HPF)
[2021-06-16 16:15] LABS: Free T4, Direct Thyroxine 1.69 ng/dL (0.78-2.19)
[2021-06-16 16:29] LABS: Thyroid Stimulating Hormone 1.08 uIU/mL (0.47-4.68)
== END ==
PROVIDERS: Family Provider Nurse Practitioner; PCP Nurse Practitioner; Referring Provider Nurse Practitioner; Visit Provider Nurse Practitioner
DX: E03.9 Hypothyroidism, unspecified (principal); F41.8 Other specified anxiety disorders; Z79.899 Other long term (current) drug therapy; R30.0 Dysuria
CPT/HCPCS: 36415; 81001; 84439; 84443; 84481; 87086

== ENCOUNTER 2021-06-28 14:30 | Outpatient (RCR) | payer MEDICARE, OTHER, SELFPAY ==
--- NOTE | 2021-06-12 14:14 | ST.OPIE ---
Visit Care Team Role Provider Type MADDIE Scott Attending Provider Advanced Wrapper Sorter Family Provider Primary Care Provider Referring Provider Specialty: Family Practice Address: [address] [place] [address], [facility] Email: [email or web address] Speech-Language Pathology Initial Evaluation BOAT HOIST OPERATOR Clinical Swallow Evaluation Start: 06/12/21 13:36 Freq: Status: Active Protocol: Document 06/06/21 13:36 LNK (Rec: 06/12/21 14:13 LNK [id number]) Clinical Swallow Evaluation Session Time Visit Start Time 13:30 Visit Stop Time 14:30 Total Visit Minutes 60 Referral Referring Provider Gary Peters MD Setting Assessment Location Outpatient Care Visit Type Note Type Initial evaluation Patient Information Identification Type Name,Date of History Pt was referred for a clinical swallow evaluation by her physician. She has a medical history of Parkinson's Disease Pt reports pain in her chest area when she is eating. She denies cough/choke with solids or liquids. Pt pointed the the sternal area of her chest. It always happens after eat. She also noted that she is currently eating small sips and bites, but it is not helping. Pt was accompanied by her daughter Subjective Observations Very nice woman with a great sense of humor. Reported by Patient Location Chest Other Symptoms Food gets stuck,Weight loss Current Diet Chopped,Thin liquids Baseline Feeding Method Independent in self-feeding Objective Assessment Mental Status Alert,Responsive,Cooperative Oral Integrity WFL Dentition Within normal limits Lip Function Within normal limits Alternating Pucker/Lip Retraction Within normal limits Tongue Function Within normal limits Observations of Tongue at Rest Within normal limits Tongue Protrusion Within normal limits Tongue Lateralization Within normal limits Jaw Opening Within normal limits Jaw Closing Within normal limits Jaw Protrusion Within normal limits Hard/Soft Palate Function Within normal limits Food and Liquid Trials Liquids Trialed Ice chips,Thin Solids Trialed Mechanical Soft,Regular Administration Type Cup single sip,Controlled cup sip,Straw,Self-feeding Oral Impairment Within functional limits Oral Phase Comments Pt was observed to masticate the cracker with a good rotary chew. She had good bolus control and AP transition. No oral residue was observed following 2 cracker trials. No cough/choke observed Pharyngeal Impairment Within normal limits Pharyngeal Phase Comments Pt demonstrated prompt swallow with good hyolaryngeal elevation per palpation. No wet voicing or cough/choke/ throat clearing was observed. When asked is she notices food going down the wrong way , she stated Rarely. She also denies frequent pneumonia . Fatigue/Endurance Mild fatigue Comment Pt did not appear to present with an oropharyngeal dysphagia. She did report the cracker trials felt stuck in her esophagus. She drank more water and indicated it was still stuck. She stated that she usually will wait and eventually the pain subsides. Given the results of this clinical swallow evaluation, and her c/o of pain in her chest/esophagus, it is possible that there may be esophageal dysmotiliy with reduced peristalsis is resulting in foods stopping and gravity eventually moving the bolus to her stomach. Alternatively, there may be structural changes in the esophagus (i.e., hiatal hernia , stricture etc.) Recommend referral to GI for an assessment. Findings Swallowing Function Within normal limits Recommendations Instrumental Assessment No Swallowing Treatment No Recommended Solids Minced Recommended Liquids Thin Other Recommendations Do not eat drink in a reclined position (as in recliner chair). Stay upright after eating 30+ minutes to allow for gravity assist with bolus flow to stomach. Safety Precautions/Swallowing Upright position at least 30 Recommendations minutes after meals,Small bites and sips when eating, Slow rate; swallow between bites,Alternate liquids and solids Medication Recommendations As Tolerated Referrals Recommended Referrals Gastroenterology Education Patient/Caregiver Education Described results of evaluation,Patient expressed understanding of evaluation, Patient expressed agreement with goals & treatment plans, Family/caregivers expressed understanding of evaluation, Family/caregivers expressed agreement with goals & treatment plans,Patient expressed understanding of safety precautions
--- NOTE | 2021-06-28 17:23 | ST.IPDYTX ---
Visit Care Team Role Provider Type MADDIE Scott Attending Provider Advanced Copy Editor Family Provider Primary Care Provider Referring Provider Specialty: Family Practice Address: [address] [place] [address], [id number] Email: [email or web address] QUILL WORKER Dysphagia Treatment QUILL WORKER Dysphagia Treatment Start: 06/28/21 15:27 Freq: Status: Active Protocol: Document 06/28/21 17:01 RAGHU (Rec: 06/28/21 17:22 LNK [id number]) Dysphagia Treatment Session Time Visit Start Time 14:30 Visit Stop Time 15:30 Total Visit Minutes 60 Visit Information Visit Number 2 Plan of Care Dates 06/06/21-09/03/21 Setting Assessment Location Outpatient Care Visit Type Note Type Treatment Note Next Note Type Next Note Type Discharge Summary Patient Information Identification Type Name,Date of Subjective Observations Pt was accompanied by her son in law. Treatment Treatment Activities No PO trials provided. Reviewed pts report with pt and son-in-law, enplaning the oral and pharyngeal phases of swallowing. Using computer graphic faye of swallowing, pt' s swallow eval results were described. Pt does not have oropharyngeal dysphagia per my assessment 06/06/21, but describes pain in mid-chest area. Given the results of pt' s clinical swallow evaluation, and her c/o of pain in her chest/esophagus, it is possible that there may be esophageal dysmotiliy with reduced peristalsis is resulting in foods stopping and gravity eventually moving the bolus to her stomach. Alternatively, there may be structural changes in the esophagus (i.e., hiatal hernia , stricture etc.). Recommend referral to GI for an assessment. Assessment Patient Response to Treatment Excellent Treatment Plan Appropriate for Continued Therapy No: Pt will be discharged.
--- NOTE | 2021-07-21 12:40 | ST.IPDYTX ---
Visit Care Team Role Provider Type MADDIE Scott Attending Provider Advanced Geophysical Party Chief Family Provider Primary Care Provider Referring Provider Specialty: Family Practice Address: [address] [place] [address], [id number] Email: [email or web address] OPTOMETRIC TECHNOLOGIST Dysphagia Treatment OPTOMETRIC TECHNOLOGIST Dysphagia Treatment Start: 06/28/21 15:27 Freq: Status: Active Protocol: Document 07/21/21 12:38 LNK (Rec: 07/21/21 12:40 LNK [id number]) Dysphagia Treatment Setting Assessment Location Outpatient Care Visit Type Note Type Discharge Summary Treatment Treatment Activities No PO trials provided. Reviewed pts report with pt and son-in-law, explaining the oral and pharyngeal phases of swallowing. Using computer graphic faye of swallowing, pt' s swallow eval results were described. Pt does not have oropharyngeal dysphagia per my assessment 06/06/21, but describes pain in mid-chest area. Given the results of pt' s clinical swallow evaluation, and her c/o of pain in her chest/esophagus, it is possible that there may be esophageal dysmotiliy with reduced peristalsis is resulting in foods stopping and gravity eventually moving the bolus to her stomach. Alternatively, there may be structural changes in the , stricture etc.). Recommend referral to GI for an assessment. Assessment Patient Response to Treatment Excellent Treatment Plan Appropriate for Continued Therapy No: Pt will be discharged. Follow Up Plan DISCHARGE
== END 2021-07-24 14:28 ==
LOC: SP 14:30
PROVIDERS: Family Provider Nurse Practitioner; PCP Nurse Practitioner; Referring Provider Nurse Practitioner; Visit Provider Nurse Practitioner
DX: R13.10 Dysphagia, unspecified (principal)
CPT/HCPCS: 92526; 92610

== ENCOUNTER → 2021-08-16 12:53 | Outpatient (CLI) | payer MEDICARE, OTHER, SELFPAY ==
[2021-08-16 16:01] LABS: Appearance Urine UA SL CLOUDY; Bilirubin Urine UA NEGATIVE (NEGATIVE); Color Urine UA ORANGE; Glucose Urine UA NEGATIVE (Negative); Ketones Urine UA 1+ (NEGATIVE); Leukocyte Esterase Urine UA 1+ (NEGATIVE); Nitrite Urine UA NEGATIVE (Negative); Occult Blood Urine UA NEGATIVE (Negative); Protein Urine UA TRACE (Negative); Specific Gravity Urine UA >=1.030 (1.000-1.035); Urobilinogen Urine UA 0.2 E.U./dL (0.2)
[2021-08-16 16:12] LABS: Bacteria Urine Few (2-10); Culture Indicated Urine Specimen Cultured; Mucus Urine 2+ (Negative); RBC Urine None Seen (0-5/HPF); WBC Urine 10-30/HPF (0-5/HPF)
== END ==
PROVIDERS: Family Provider Nurse Practitioner; PCP Nurse Practitioner; Referring Provider Nurse Practitioner; Visit Provider Nurse Practitioner
DX: R32 Unspecified urinary incontinence (principal); R30.0 Dysuria
CPT/HCPCS: 81001; 87086

== ENCOUNTER → 2021-10-24 13:21 | Outpatient (CLI) | payer MEDICARE, OTHER, SELFPAY ==
[2021-10-24 18:07] LABS: Add Manual Diff / Slide Review NO; Basophils Absolute Auto 0 /uL (0-100); Basophils Percent Auto 0.8 % (0-2); Eosinophils Absolute Auto 100 /uL (0-450); Eosinophils Percent Auto 2.2 % (2-4); Hematocrit 32.1 % (36-46); Hemoglobin 11.3 g/dL (12.0-16.0); Lymphocytes Absolute Auto 1600 /uL (1100-4500); Lymphocytes Percent Auto 28.7 % (25-40); Mean Corpuscular HGB Conc 35.3 % (30-36); Mean Corpuscular Hemoglobin 33.7 PG (26-34); Mean Corpuscular Volume 95.5 fL (80-100); Monocytes Absolute Auto 800 /uL (0-900); Monocytes Percent Auto 14.5 % (3-14); Neutrophils Absolute Auto 3000 /uL (1500-7000); Neutrophils Percent Auto 53.8 % (50-75); Platelet Count 326 X10^3/uL (150-400); Red Blood Cell Count 3.36 X10^6/uL (4.0-5.2); Red Cell Distribution Width 13.2 % (11.6-14.8); White Blood Cell Count 5.6 X10^3/uL (4.5-11.0)
[2021-10-24 18:40] LABS: Alanine Aminotransferase 5 IU/L (<35); Albumin 3.6 g/dL (3.5-5.0); Albumin Globulin Ratio 1.4 (1.0-2.8); Alkaline Phosphatase 60 U/L (38-126); Aspartate Aminotransferase 23 IU/L (14-36); BUN Creatinine Ratio 23.6 (6-22); Bilirubin Total 1.1 mg/dL (0.2-1.3); Blood Urea Nitrogen 17 mg/dL (7-17); Calcium 8.7 mg/dL (8.4-10.2); Carbon Dioxide 26 mmol/L (22-32); Chloride 104 mmol/L (98-107); Estimated Glomerular Filt Rate > 60 mL/min (>60); Globulin 2.6 g/dL (1.7-4.1); Glucose 77 mg/dL (80-110); HEMOLYSIS < 15 (0-50); Potassium 4.4 mmol/L (3.4-5.1); Sodium 135 mmol/L (137-145); Total Protein 6.2 g/dL (6.3-8.2)
[2021-10-24 19:10] LABS: Thyroid Stimulating Hormone 0.745 uIU/mL (0.47-4.68)
[2021-10-25 14:49] LABS: Magnesium 1.7 mg/dL (1.6-2.3)
== END ==
PROVIDERS: Family Provider Nurse Practitioner; PCP Nurse Practitioner; Visit Provider Nurse Practitioner
DX: E03.9 Hypothyroidism, unspecified (principal); R53.83 Other fatigue; R63.0 Anorexia; R63.4 Abnormal weight loss
CPT/HCPCS: 80053; 83735; 84443; 85025

== ENCOUNTER 2021-11-10 14:48 | Emergency (ER) | payer MEDICARE, OTHER, SELFPAY ==
[2021-11-10] VITALS (16 sets, daily range): BP systolic 129–190; BP diastolic 70–91; PULSE 71–77; RESP 13–28; TEMP 36.7; O2SAT 96–100
--- NOTE | 2021-11-10 14:57 | DI.RAD.S_ITS ---
PROCEDURE: XR CHEST 1V INDICATIONS: chest pain TECHNIQUE: One view of the chest was acquired. COMPARISON: [facility], CR, XR CHEST 1V, 05/30/2021, 8:30. FINDINGS: Surgical changes and devices: None. Lungs and pleura: No suspicious focal airspace opacity. Biapical pleural/parenchymal scarring redemonstrated. No pleural effusions or pneumothorax. Mediastinum: Mediastinal contours appear normal. Heart size is normal. Bones and chest wall: No suspicious bony lesions. Overlying soft tissues appear unremarkable. IMPRESSION: No acute cardiopulmonary abnormality. Dictated by: Tony Box M.D. on 11/10/2021 at 15:58 Approved by: Tony Box M.D. on 11/10/2021 at 16:02
[2021-11-10 15:32] LABS: Add Manual Diff / Slide Review NO; Basophils Absolute Auto 100 /uL (0-100); Basophils Percent Auto 0.8 % (0-2); Eosinophils Absolute Auto 100 /uL (0-450); Eosinophils Percent Auto 1.1 % (2-4); Hematocrit 35.9 % (36-46); Hemoglobin 12.6 g/dL (12.0-16.0); Lymphocytes Absolute Auto 1500 /uL (1100-4500); Lymphocytes Percent Auto 23.5 % (25-40); Mean Corpuscular HGB Conc 35.2 % (30-36); Mean Corpuscular Hemoglobin 33.8 PG (26-34); Mean Corpuscular Volume 96.1 fL (80-100); Monocytes Absolute Auto 900 /uL (0-900); Neutrophils Absolute Auto 3700 /uL (1500-7000); Neutrophils Percent Auto 59.6 % (50-75); Platelet Count 358 X10^3/uL (150-400); Red Blood Cell Count 3.73 X10^6/uL (4.0-5.2); Red Cell Distribution Width 13.1 % (11.6-14.8); White Blood Cell Count 6.3 X10^3/uL (4.5-11.0)
[2021-11-10 16:02] LABS: Alanine Aminotransferase 11 IU/L (<35); Albumin 4.2 g/dL (3.5-5.0); Albumin Globulin Ratio 1.4 (1.0-2.8); Alkaline Phosphatase 80 U/L (38-126); Aspartate Aminotransferase 29 IU/L (14-36); BUN Creatinine Ratio 16.7 (6-22); Bilirubin Total 2.3 mg/dL (0.2-1.3); Blood Urea Nitrogen 14 mg/dL (7-17); Calcium 9.2 mg/dL (8.4-10.2); Carbon Dioxide 24 mmol/L (22-32); Chloride 109 mmol/L (98-107); Creatine Kinase 146 U/L (30-135); Estimated Glomerular Filt Rate > 60 mL/min (>60); Glucose 96 mg/dL (80-110); HEMOLYSIS < 15 (0-50); Lipase 45 U/L (23-300); Potassium 3.5 mmol/L (3.4-5.1); Sodium 138 mmol/L (137-145); Total Protein 7.2 g/dL (6.3-8.2)
--- NOTE | 2021-11-10 16:10 | ED_ITS ---
HPI - Weakness <Tati Sabine Conley [facility] - Last Filed: 11/10/21 17:49> General Chief complaint: Weakness Stated complaint: Lethargic after a panic attack Time Seen by Provider: 11/10/21 15:41 Source: patient and EMS Mode of arrival: EMS History of Present Illness HPI Narrative: This is an 86-year-old female who is brought into the emergency department by EMS after having panic attacks last night, not sleeping well and being fatigued today. Patient states that she has a history of panic attacks, she also has a history of UTIs, Parkinson's disease, hypertension, hypothyroidism, and denies any recent illness. She denies dysuria, urinary frequency or urgency but states that for the last two days she has had worsening bad dreams, episodes of anxiety and panic are frequent, state that she is having difficulty calming herself down. She was recently prescribed lorazepam from Dr. Iris peters but patient states that it makes her feel loopy and lightheaded, she feels imbalanced and is concerned she might fall. She denies any recent fever, increased fatigue, states that she is tired today likely because she did not sleep well last night. States that she takes Tylenol at home for pain when she has it. States that she takes entacapone which helps extend the activity of her carbidopa and levodopa, states that this medication was added approximately two weeks ago and this is when her nightmares became worse. Patient follows up with that prescriber who is Dr. Raymon Hart next week. Patient denies any recent fall, vision changes, significant headache, nausea vomiting, diarrhea, or other significant symptoms. Patient reports that she was up a few times last night to go to the bathroom and then had a panic attack which she could not calm herself down from for at least 4 hours. Patient's caregivers here at her bedside and state that patient does not act like herself when she takes lorazepam.. Related Data Home Medications Medication Instructions Recorded Confirmed acetaminophen 325 mg capsule 325 mg PO Q6H PRN 06/05/18 02/02/21 (Tylenol) ferrous sulfate 325 mg (65 mg 325 mg PO Q OTHER DAY low iron 10/19/20 02/02/21 iron) tablet cholecalciferol (vitamin D3) 50 50 mcg PO BID 02/02/21 02/02/21 mcg (2,000 unit) capsule carbidopa 25 mg-levodopa 100 mg 0.5 tab PO BEDTIME 10/24/21 10/24/21 tablet carbidopa ER 25 mg-levodopa 100 mg 1 tab PO BEDTIME 10/24/21 10/24/21 tablet,extended release carbidopa ER 50 mg-levodopa 200 mg 1 tab PO BEDTIME 10/24/21 10/24/21 tablet,extended release entacapone 200 mg tablet 200 mg PO 6XD 10/24/21 10/24/21 Previous Rx's Medication Instructions Recorded Disabled Parking Permit See Rx Instructions .Route 04/17/21 .COMPLEX #1 unit magnesium oil 1 spray topical 4-6XD PRN muscle 04/21/21 spasms #150 mL lactase 9,000 unit tablet (Lactaid 9,000 unit PO ONCE #60 tabs 05/26/21 Fast Act) rasagiline 1 mg tablet 1 mg PO DAILY #90 tabs 06/01/21 Synthroid 100 mcg tablet See Rx Instructions .Route 08/10/21 (levothyroxine) .COMPLEX #90 tabs clobetasol 0.05 % scalp solution 1 applic topical BEDTIME #25 mL 08/16/21 metronidazole 1 % topical gel 1 applic topical DAILY #60 grams 08/16/21 (Metrogel) fluconazole 150 mg tablet 150 mg PO Q3D 2 doses #2 tabs 08/22/21 (Diflucan) carbidopa 25 mg-levodopa 100 mg See Rx Instructions PO QID #240 08/29/21 tablet tabs mupirocin 2 % topical ointment 1 applic topical TID #22 grams 08/29/21 baclofen 5 mg tablet See Rx Instructions .Route 11/16/21 .COMPLEX #90 tabs clonazepam 0.5 mg tablet 0.25 mg PO BID #30 tabs 11/16/21 Allergies Allergy/AdvReac Type Severity Reaction Status Date / Time clobetasol Allergy Intermediate Rash Verified 11/10/21 14:57 lactose [LACTOSE] Allergy Intermediate GI upset Verified 11/10/21 14:57 latex [LATEX] Allergy Intermediate Redness Verified 11/10/21 14:57 and swelling Penicillins [PENICILLINS] Allergy Intermediate RASH Verified 11/10/21 14:57 benzocaine [BENZOCAINE] Allergy Mild RASH Verified 11/10/21 14:57 SWELLING iodine [IODINE] Allergy Mild RASH Verified 11/10/21 14:57 cyclosporine [CYCLOSPORINE] AdvReac Severe SHARP EYE Verified 11/10/21 14:57 PAIN Antihistamines - Alkylamine AdvReac Intermediate Profound Verified 11/10/21 14:57 Sun Sensitivity levothyroxine AdvReac Intermediate Sun Verified 11/10/21 14:57 sensativity - MUST USE NAME BRAND SYNTHROID. octinoxate [OCTINOXATE] AdvReac Intermediate Redness Verified 11/10/21 14:57 and swelling oxybenzone [OXYBENZONE] AdvReac Intermediate Redness Verified 11/10/21 14:57 and swelling Review of Systems <MADDIE Gaxiola - Last Filed: 11/10/21 17:49> Review of Systems Narrative: General: denies fever, chills, malaise, sweats, fatigue but states that she is tired today from being up last night Head/Neck: denies headache, neck pain, dizziness Eyes: denies visual changes, eye pain Cardio: denies chest pain, palpitations, edema Respiratory: denies dyspnea, cough, orthopnea GI: denies abdominal pain, nausea, vomiting, or diarrhea : denies dysuria, hematuria, urinary retention, frequency or incontinence MSK: denies joint pain, muscle weakness Skin: denies rash, itching, skin lesions or other Neuro: denies numbness, tingling, concern for panic attacks and insomnia Patient History <MADDIE Gaxiola - Last Filed: 11/10/21 17:49> Medical History Anhydrosis Ankle pain (~2017) Cervical cancer (~1994) Chicken pox Deep vein thrombosis Depression (~1963) Depression with anxiety Drug allergy, multiple Esophageal abnormality Fracture (~2012) History of retinal hemorrhage History of TB (tuberculosis) Hypothyroidism (~1964) Impaired regulation of body temperature Loss of appetite Measles Mumps Muscle spasms of both lower extremities Open scalp wound Osteoarthritis Osteopenia 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) Palpitations (08/07/12) Parkinson's disease (~2018) Postural dizziness Premature beat (~2015) Rosacea (~1995) Tick fever (~1959) Tuberculosis (~1975) Unintentional weight loss of 10% body weight within 6 months Vertigo (~1999) Surgical History Anesthesia Cataracts, bilateral (~2002) History of bunionectomy (~1995) History of cystoscopy (~1994) History of dilation and curettage (~2009) History of tonsillectomy (~1951) Status post removal of cervix (~1994) Family History Father Aplastic anemia Mother Scleroderma Brother Thrombosis Grandfather Cancer Grandmother Thrombosis Grandfather History of heart attack Grandmother Diabetes mellitus Social History Smoking Status: Former smoker second hand exposure: No alcohol intake: current substance use type: does not use Smoking Status: Former smoker alcohol intake frequency: 0-2 drinks per day Substance Use Type: does not use Exam <MADDIE Gaxiola - Last Filed: 11/10/21 17:49> Narrative Exam Narrative: Independently reviewed vitals signs and nursing notes. General: cooperative, comfortable, in no acute distress, well groomed Head: atraumatic, symmetrical facial expressions Neck: supple Eyes: equal round and reactive, EOMI, conjunctiva normal Nose: nares patent, no rhinorrhea Mouth/Throat: moist mucus membranes Cardiovascular: regular rate and rhythm, no peripheral edema, warm extremities, afebrile without lower extremity edema Respiratory: normal effort, able to speak in complete sentences, no audible wheezing, stridor, or rales. No retractions or tachypnea. GI: abdomen soft, nontender to palpation, nondistended, suprapubic tenderness to palpation, no masses, no exquisite tenderness with exam, without guarding or rebound. MSK: moves all extremities, neurovascularly intact, no weakness, normal tone Skin: brisk capillary refill, no rash, no erythema Neuro: normal speech and cognition, A&O x3 Psych: mental status is grossly normal, congruent mood, normal affect, pleasant and cooperative without any focal deficits Initial Vital Signs Initial Vital Signs: Vital Signs Temperature 98.0 F 11/10/21 14:53 Pulse Rate 73 11/10/21 14:53 Respiratory Rate 14 11/10/21 14:53 Blood Pressure 148/71 H 11/10/21 14:53 Pulse Oximetry 96 11/10/21 14:53 Oxygen Delivery Method 11/10/21 14:53 <Kasey Mansfield DO - Last Filed: 11/16/21 22:00> Initial Vital Signs Initial Vital Signs: Vital Signs Temperature 98.0 F 11/10/21 14:53 Pulse Rate 73 11/10/21 14:53 Respiratory Rate 14 11/10/21 14:53 Blood Pressure 148/71 H 11/10/21 14:53 Pulse Oximetry 96 11/10/21 14:53 Oxygen Delivery Method 11/10/21 14:53 Course <MADDIE Gaxiola - Last Filed: 11/10/21 17:49> Orders Ordered: Discontinued Medications Hydroxyzine Pamoate (Hydroxyzine Pamoate 25 Mg Capsule) 25 mg PO NOW ONE Stop: 11/10/21 15:55 Last Admin: 11/10/21 16:37 Dose: 25 mg Documented By: SAVANNAH Lactated Ringer's (Lactated Ringers) 1,000 mls @ 1,000 mls/hr IV BOLUS ONE Stop: 11/10/21 17:23 Last Infusion: 11/10/21 18:00 Dose: 0 mls/hr Documented By: Admin: 11/10/21 16:37 Dose: 1,000 mls/hr Documented By: SAVANNAH Trimethoprim/Sulfamethoxazole (Trimeth/Sulfa 160/800 (Ds) Tablet) 1 tab PO NOW ONE Stop: 11/10/21 17:06 Last Admin: 11/10/21 18:37 Dose: 1 tab Documented By: SAVANNAH Vital Signs Vital signs: Vital Signs - 8 hr 11/10/21 14:53 11/10/21 15:15 11/10/21 15:28 Temperature 98.0 F Pulse Rate 73 72 75 Respiratory Rate 14 18 18 Blood Pressure 148/71 H Pulse Oximetry 96 Oxygen Delivery Method Room Air 11/10/21 15:28 11/10/21 15:30 11/10/21 15:30 Temperature Pulse Rate 75 Respiratory Rate 28 H Blood Pressure 190/91 H 171/82 H Pulse Oximetry 100 99 Oxygen Delivery Method 11/10/21 15:45 11/10/21 16:00 11/10/21 16:00 Temperature Pulse Rate 74 73 Respiratory Rate 17 20 Blood Pressure 172/84 H Pulse Oximetry 100 99 Oxygen Delivery Method 11/10/21 16:15 11/10/21 16:30 11/10/21 16:30 Temperature Pulse Rate 75 75 Respiratory Rate 16 16 Blood Pressure 129/70 Pulse Oximetry 98 99 Oxygen Delivery Method 11/10/21 16:45 11/10/21 17:00 11/10/21 17:00 Temperature Pulse Rate 77 72 Respiratory Rate 22 15 Blood Pressure 166/80 H Pulse Oximetry 98 99 Oxygen Delivery Method 11/10/21 17:15 11/10/21 17:30 11/10/21 17:30 Temperature Pulse Rate 74 72 Respiratory Rate 15 15 Blood Pressure 158/79 H Pulse Oximetry 99 100 Oxygen Delivery Method <Kasey Mansfield DO - Last Filed: 11/16/21 22:00> Orders Ordered: Discontinued Medications Hydroxyzine Pamoate (Hydroxyzine Pamoate 25 Mg Capsule) 25 mg PO NOW ONE Stop: 11/10/21 15:55 Last Admin: 11/10/21 16:37 Dose: 25 mg Documented By: SAVANNAH Lactated Ringer's (Lactated Ringers) 1,000 mls @ 1,000 mls/hr IV BOLUS ONE Stop: 11/10/21 17:23 Last Infusion: 11/10/21 18:00 Dose: 0 mls/hr Documented By: Admin: 11/10/21 16:37 Dose: 1,000 mls/hr Documented By: SAVANNAH Trimethoprim/Sulfamethoxazole (Trimeth/Sulfa 160/800 (Ds) Tablet) 1 tab PO NOW ONE Stop: 11/10/21 17:06 Last Admin: 11/10/21 18:37 Dose: 1 tab Documented By: SAVANNAH Vital Signs Vital signs: Vital Signs - 8 hr 11/10/21 14:53 11/10/21 15:15 11/10/21 15:28 Temperature 98.0 F Pulse Rate 73 72 75 Respiratory Rate 14 18 18 Blood Pressure 148/71 H Pulse Oximetry 96 Oxygen Delivery Method Room Air 11/10/21 15:28 11/10/21 15:30 11/10/21 15:30 Temperature Pulse Rate 75 Respiratory Rate 28 H Blood Pressure 190/91 H 171/82 H Pulse Oximetry 100 99 Oxygen Delivery Method 11/10/21 15:45 11/10/21 16:00 11/10/21 16:00 Temperature Pulse Rate 74 73 Respiratory Rate 17 20 Blood Pressure 172/84 H Pulse Oximetry 100 99 Oxygen Delivery Method 11/10/21 16:15 11/10/21 16:30 11/10/21 16:30 Temperature Pulse Rate 75 75 Respiratory Rate 16 16 Blood Pressure 129/70 Pulse Oximetry 98 99 Oxygen Delivery Method 11/10/21 16:45 11/10/21 17:00 11/10/21 17:00 Temperature Pulse Rate 77 72 Respiratory Rate 22 15 Blood Pressure 166/80 H Pulse Oximetry 98 99 Oxygen Delivery Method 11/10/21 17:15 11/10/21 17:30 11/10/21 17:30 Temperature Pulse Rate 74 72 Respiratory Rate 15 15 Blood Pressure 158/79 H Pulse Oximetry 99 100 Oxygen Delivery Method MDM - Weakness <MADDIE Gaxiola - Last Filed: 11/10/21 17:49> Lab Data Result diagrams: 11/10/21 15:24 11/10/21 15:24 Labs: Lab Results 11/10/21 11/10/21 11/10/21 Range/Units 15:07 15:24 15:24 WBC 6.3 (4.5-11.0) X10^3/uL RBC 3.73 L (4.0-5.2) X10^6/uL Hgb 12.6 (12.0-16.0) g/dL Hct 35.9 L (36-46) % MCV 96.1 (80-100) fL MCH 33.8 (26-34) PG MCHC 35.2 (30-36) % RDW 13.1 (11.6-14.8) % Plt Count 358 (150-400) X10^3/uL Neut % (Auto) 59.6 (50-75) % Lymph % (Auto) 23.5 L (25-40) % Owen % (Auto) 15.0 H (3-14) % Eos % (Auto) 1.1 L (2-4) % Baso % (Auto) 0.8 (0-2) % Neut # (Auto) 3700 (7891-1559) /uL Lymph # (Auto) 1500 (7663-9692) /uL Owen # (Auto) 900 (0-900) /uL Eos # (Auto) 100 (0-450) /uL Baso # (Auto) 100 (0-100) /uL Sodium 138 (137-145) mmol/L Potassium 3.5 (3.4-5.1) mmol/L Chloride 109 H (98-107) mmol/L Carbon Dioxide 24 (22-32) mmol/L BUN 14 (7-17) mg/dL Creatinine 0.84 (0.52-1.04) mg/dL Estimated GFR > 60 (>60) mL/min BUN/Creatinine Ratio 16.7 (6-22) Glucose 96 (80-110) mg/dL Lactate (0.7-2.1) mmol/L Calcium 9.2 (8.4-10.2) mg/dL Magnesium 1.9 (1.6-2.3) mg/dL Total Bilirubin 2.3 H (0.2-1.3) mg/dL AST 29 (14-36) IU/L ALT 11 (<35) IU/L Alkaline Phosphatase 80 (38-126) U/L Total Creatine Kinase 146 H (30-135) U/L CK-MB (CK-2) 1.09 (<2.37) ng/mL CK-MB (CK-2) Rel Index 0.7 L (1.5-5.0) % Troponin I < 0.012 (0.01-0.034) ng/mL Total Protein 7.2 (6.3-8.2) g/dL Albumin 4.2 (3.5-5.0) g/dL Globulin 3.0 (1.7-4.1) g/dL Albumin/Globulin Ratio 1.4 (1.0-2.8) Lipase 45 (23-300) U/L Urine RBC None seen (0-5/HPF) Urine WBC 1-5/hpf (0-5/HPF) Amorphous Sediment 2+ Urine Bacteria Few (2-10) H (None) Ur Culture Indicated? Specimen cultured 11/10/21 Range/Units 15:24 WBC (4.5-11.0) X10^3/uL RBC (4.0-5.2) X10^6/uL Hgb (12.0-16.0) g/dL Hct (36-46) % MCV (80-100) fL MCH (26-34) PG MCHC (30-36) % RDW (11.6-14.8) % Plt Count (150-400) X10^3/uL Neut % (Auto) (50-75) % Lymph % (Auto) (25-40) % Owen % (Auto) (3-14) % Eos % (Auto) (2-4) % Baso % (Auto) (0-2) % Neut # (Auto) (5591-8776) /uL Lymph # (Auto) (6064-4120) /uL Owen # (Auto) (0-900) /uL Eos # (Auto) (0-450) /uL Baso # (Auto) (0-100) /uL Sodium (137-145) mmol/L Potassium (3.4-5.1) mmol/L Chloride (98-107) mmol/L Carbon Dioxide (22-32) mmol/L BUN (7-17) mg/dL Creatinine (0.52-1.04) mg/dL Estimated GFR (>60) mL/min BUN/Creatinine Ratio (6-22) Glucose (80-110) mg/dL Lactate 1.3 (0.7-2.1) mmol/L Calcium (8.4-10.2) mg/dL Magnesium (1.6-2.3) mg/dL Total Bilirubin (0.2-1.3) mg/dL AST (14-36) IU/L ALT (<35) IU/L Alkaline Phosphatase (38-126) U/L Total Creatine Kinase (30-135) U/L CK-MB (CK-2) (<2.37) ng/mL CK-MB (CK-2) Rel Index (1.5-5.0) % Troponin I (0.01-0.034) ng/mL Total Protein (6.3-8.2) g/dL Albumin (3.5-5.0) g/dL Globulin (1.7-4.1) g/dL Albumin/Globulin Ratio (1.0-2.8) Lipase (23-300) U/L Urine RBC (0-5/HPF) Urine WBC (0-5/HPF) Amorphous Sediment Urine Bacteria (None) Ur Culture Indicated? Urine Dip Bedside Urine Glucose Negative Bedside Urine Bilirubin - Negative Bedside Urine Ketone + 15 Urine Specific [place] 1.010 Bedside Urine Occult Blood - Negative Bedside Urine pH 8.5 Bedside Urine Protein - Negative Bedside Urine Urobilinogen - Negative Bedside Urine Nitrite - Negative Bedside Urine Leukocytes + 70 Esterase Imaging Data Chest x-ray: Radiologist Impression: PROCEDURE:? XR CHEST 1V ? INDICATIONS:? chest pain ? TECHNIQUE:? One view of the chest was acquired.? ? COMPARISON:? [facility], CR, XR CHEST 1V, 05/30/2021, 8:30. ? FINDINGS:? ? Surgical changes and devices:? None.? ? Lungs and pleura:? No suspicious focal airspace opacity.? Biapical pleural/pare nchymal scarring redemonstrated.? No pleural effusions or pneumothorax.? ? Mediastinum:? Mediastinal contours appear normal.? Heart size is normal.? ? Bones and chest wall:? No suspicious bony lesions.? Overlying soft tissues appear unremarkable.? ? IMPRESSION:? No acute cardiopulmonary abnormality. ?? Dictated by: Tony Box M.D. on 11/10/2021 at 15:58 ? ? Approved by: Tony Box M.D. on 11/10/2021 at 16:02 ? ECG Data Interpretation: EKG independently reviewed by Dr. Mansfield and reveals normal sinus rhythm at 75 bpm with regular axis and intervals. No STEMI, ST segment changes, arrhythmia, or acute ischemic changes. [facility] Narrative Medical decision making narrative: This is a pleasant 86-year-old female with history of Parkinson's disease, hypertension, hypothyroidism, and presents to the emergency department with episodes of panic attacks over the last week which have been increasing. Patient takes entacapone which is a new medication prescribed by Dr. Hart approximately two weeks ago to extend the carbidopa levodopa activity of her Parkinson's medications. States that her panic attacks have been increasing in frequency since then with nightmares. Patient denies any recent fever, urinary frequency, dysuria, increased fatigue, or other. Patient had a panic attack last night which lasted approximately 4 hours and her caregiver was concerned and brought her into the emergency department via ambulance for evaluation. Her lab work overall is grossly reassuring, patient does not have any leukocytosis or anemia, her total bilirubin is elevated today at 2.3 but all of her total bilirubins have been elevated except for one lab value earlier this month. No elevation in her troponin or lipase, her urine shows bacteria on microscopy and is pending for culture, no hematuria. Chest x-ray is negative for acute cardiopulmonary abnormality, patient does not have any shortness of breath or abnormal breath sounds, no hypoxia or tachypnea, no tachycardia or fever. She was treated for her likely acute cystitis with Bactrim, given a five day b.i.d. prescription of this, encouraged to stay hydrated, she was given 1 L of lactated Ringer's in the emergency department for decreased p.o. intake. She was also given hydroxyzine for trial for anxiety. She states that Dr. Peters started patient on lorazepam for her anxiety and panic attacks but patient has been altered after taking this medication, feels imbalanced when she ambulates, and has brain fog. Urged patient to discontinue taking this medication, she tried hydroxyzine today in the emergency department and did not have any of these symptoms and states that she feels much better from an anxiety standpoint. She was given a prescription of this as well, encouraged to follow-up with Iris peters in the next week to follow-up on her urine culture. She has follow-up planned with Dr. Hart who is her neurologist to discuss her medications. Encouraged patient to monitor her symptoms after treating her urinary infection to see if her nightmares/anxiety improve, encouraged her to stay hydrated and empty her bladder frequently. She does not complain of any pain today, states that her anxiety and symptoms have improved and she does not feel dehydrated any longer. Encourage patient to follow up with her outpatient providers as scheduled. No peritoneal signs on abdominal exam. Patient remains p.o. tolerant. Serial abdominal exam without increase in abdominal pain. Given history and exam, low suspicion for acute abdominal process, such as acute chol ecystitis, pancreatitis, perforated viscus, atypical appendicitis, colitis, diverticulitis or torsion. Extensive conversation about ER return precautions and need for close follow-up. Patient is appropriate and amenable to discharge home. Vital signs are stable on repeat examination is unremarkable. Patient has been informed of results. Patient has been given strict return to ER precautions for any new or worsening symptoms. Patient understands to follow up closely with outpatient providers as instructed. Patient understands plan and agrees to discharge home. All questions and concerns answered at this time. <Kasey Mansfield, DO - Last Filed: 11/16/21 22:00> Lab Data Labs: Lab Results 07/11/10/21 11/10/21 Range/Units 15:07 15:24 15:24 WBC 6.3 (4.5-11.0) X10^3/uL RBC 3.73 L (4.0-5.2) X10^6/uL Hgb 12.6 (12.0-16.0) g/dL Hct 35.9 L (36-46) % MCV 96.1 (80-100) fL MCH 33.8 (26-34) PG MCHC 35.2 (30-36) % RDW 13.1 (11.6-14.8) % Plt Count 358 (150-400) X10^3/uL Neut % (Auto) 59.6 (50-75) % Lymph % (Auto) 23.5 L (25-40) % Owen % (Auto) 15.0 H (3-14) % Eos % (Auto) 1.1 L (2-4) % Baso % (Auto) 0.8 (0-2) % Neut # (Auto) 3700 (0705-4609) /uL Lymph # (Auto) 1500 (9882-2343) /uL Owen # (Auto) 900 (0-900) /uL Eos # (Auto) 100 (0-450) /uL Baso # (Auto) 100 (0-100) /uL Sodium 138 (137-145) mmol/L Potassium 3.5 (3.4-5.1) mmol/L Chloride 109 H (98-107) mmol/L Carbon Dioxide 24 (22-32) mmol/L BUN 14 (7-17) mg/dL Creatinine 0.84 (0.52-1.04) mg/dL Estimated GFR > 60 (>60) mL/min BUN/Creatinine Ratio 16.7 (6-22) Glucose 96 (80-110) mg/dL Lactate (0.7-2.1) mmol/L Calcium 9.2 (8.4-10.2) mg/dL Magnesium 1.9 (1.6-2.3) mg/dL Total Bilirubin 2.3 H (0.2-1.3) mg/dL AST 29 (14-36) IU/L ALT 11 (<35) IU/L Alkaline Phosphatase 80 (38-126) U/L Total Creatine Kinase 146 H (30-135) U/L CK-MB (CK-2) 1.09 (<2.37) ng/mL CK-MB (CK-2) Rel Index 0.7 L (1.5-5.0) % Troponin I < 0.012 (0.01-0.034) ng/mL Total Protein 7.2 (6.3-8.2) g/dL Albumin 4.2 (3.5-5.0) g/dL Globulin 3.0 (1.7-4.1) g/dL Albumin/Globulin Ratio 1.4 (1.0-2.8) Lipase 45 (23-300) U/L Urine RBC None seen (0-5/HPF) Urine WBC 1-5/hpf (0-5/HPF) Amorphous Sediment 2+ Urine Bacteria Few (2-10) H (None) Ur Culture Indicated? Specimen cultured 11/10/21 Range/Units 15:24 WBC (4.5-11.0) X10^3/uL RBC (4.0-5.2) X10^6/uL Hgb (12.0-16.0) g/dL Hct (36-46) % MCV (80-100) fL MCH (26-34) PG MCHC (30-36) % RDW (11.6-14.8) % Plt Count (150-400) X10^3/uL Neut % (Auto) (50-75) % Lymph % (Auto) (25-40) % Owen % (Auto) (3-14) % Eos % (Auto) (2-4) % Baso % (Auto) (0-2) % Neut # (Auto) (5167-7769) /uL Lymph # (Auto) (0988-9690) /uL Owen # (Auto) (0-900) /uL Eos # (Auto) (0-450) /uL Baso # (Auto) (0-100) /uL Sodium (137-145) mmol/L Potassium (3.4-5.1) mmol/L Chloride (98-107) mmol/L Carbon Dioxide (22-32) mmol/L BUN (7-17) mg/dL Creatinine (0.52-1.04) mg/dL Estimated GFR (>60) mL/min BUN/Creatinine Ratio (6-22) Glucose (80-110) mg/dL Lactate 1.3 (0.7-2.1) mmol/L Calcium (8.4-10.2) mg/dL Magnesium (1.6-2.3) mg/dL Total Bilirubin (0.2-1.3) mg/dL AST (14-36) IU/L ALT (<35) IU/L Alkaline Phosphatase (38-126) U/L Total Creatine Kinase (30-135) U/L CK-MB (CK-2) (<2.37) ng/mL CK-MB (CK-2) Rel Index (1.5-5.0) % Troponin I (0.01-0.034) ng/mL Total Protein (6.3-8.2) g/dL Albumin (3.5-5.0) g/dL Globulin (1.7-4.1) g/dL Albumin/Globulin Ratio (1.0-2.8) Lipase (23-300) U/L Urine RBC (0-5/HPF) Urine WBC (0-5/HPF) Amorphous Sediment Urine Bacteria (None) Ur Culture Indicated? Urine Dip Bedside Urine Glucose Negative Bedside Urine Bilirubin - Negative Bedside Urine Ketone + 15 Urine Specific [place] 1.010 Bedside Urine Occult Blood - Negative Bedside Urine pH 8.5 Bedside Urine Protein - Negative Bedside Urine Urobilinogen - Negative Bedside Urine Nitrite - Negative Bedside Urine Leukocytes + 70 Esterase Discharge Plan Departure Patient Disposition: Home Clinical Impression: Panic attacks Acute cystitis Qualifiers: Hematuria presence: without hematuria Qualified Code(s): N30.00 - Acute cystitis without hematuria Instructions: Creating a Healthy Sleep Routine, Acute Cystitis, DI for Anxiety -- Adult Activity Restrictions/Additional Instructions: *You have been diagnosed with a bladder infection, we will call you if your urine grows any bacteria that is resistant to this antibiotic. Please stay hydrated, empty her bladder before bed, take your other medications as prescribed and follow-up with your Dr. Hart next week as scheduled about your medications. Please see if your panic attacks improve after starting antibiotics, this could be caused from your urinary infection. Please drink plenty of water, remember to eat at least two meals each day even if you do not feel well, take Tylenol as needed for your pain and try hydroxyzine as needed for panic attacks. Please continue taking your other medications as they are prescribed and discuss the nightmares that you have been having. I hope that you start feeling better soon and please come back to the emergency department for any worsening. Your medications are available over ' there is an antibiotic for you to take twice a day for five days and hydroxyzine as needed for anxiety and insomnia. Please remember to try deep breathing exercises to help yourself calm down during an episode of panic, drink a glass of water, and try to soothe yourself so that you do not feel as panic. *What to do: *Please continue to take your regular medications as directed. [ x] [facility] [ ] New medication written as a paper prescription [ ] No new medications given *Please follow up with your primary care provider in 2-3 days, call for an appointment. Let them know you were seen in the Emergency Department and that we asked that you be seen for follow-up. We will electronically transmit a record of today's note if your PCP is in our system *If you do not have a primary care provider please contact [phone] to establish care with one of [facility] primary care providers. *Return to Emergency Department if you should have any new, worsening or concerning symptoms, such as [fever greater than 101F, chills, worsening pain, persistent vomiting or other bothersome symptoms] Prescriptions: No Action acetaminophen [Tylenol] 325 mg capsule 325 mg PO Q6H PRN levothyroxine [Synthroid] 100 mcg tablet See Rx Instructions .ROUTE .COMPLEX Qty: 90 3RF Dose Instruction: TAKE 1 TABLET BY MOUTH ONCE IN THE MORNING FOR THYROID REPLACEMENT. BRAND NAME ONLY. Rx Instructions: TAKE 1 TABLET BY MOUTH ONCE IN THE MORNING FOR THYROID REPLACEMENT. BRAND NAME ONLY. fluconazole [Diflucan] 150 mg tablet 150 mg PO Q3D Qty: 2 0RF baclofen 5 mg tablet See Rx Instructions .ROUTE .COMPLEX Qty: 90 3RF Dose Instruction: TAKE 1/2 TO 1 TABLET BY MOUTH AT BEDTIME DAILY TO PREVENT MUSCLE SPASMS Rx Instructions: TAKE 1/2 TO 1 TABLET BY MOUTH AT BEDTIME DAILY TO PREVENT MUSCLE SPASMS Disabled Parking Permit See Rx Instructions .ROUTE .COMPLEX Qty: 1 0RF Rx Instructions: I find this patient to be medically disabled and qualify for disabled parking as indicated and signed on the accompanying disabled parking application for individuals. Lactaid Fast Act 9,000 unit tablet 9,000 unit PO ONCE Qty: 60 3RF Rx Instructions: Take 1 tab prior to ensure type drink up to twice per day rasagiline 1 mg tablet 1 mg PO DAILY Qty: 90 3RF Rx Instructions: Tale 1mg tab daily for Parkinsons symptoms mupirocin 2 % ointment 1 applic topical TID Qty: 22 2RF Rx Instructions: Apply 2-3 times daily to affected area until resolved. carbidopa-levodopa 25-100 mg tablet See Rx Instructions PO QID Qty: 240 3RF Rx Instructions: 1 tab 0715am, 1/2 tab at 10:15 and 1/2 tab at 1:15, 1/2 tab 4:15pm, PO four times daily carbidopa-levodopa 50-200 mg tablet extended release 1 tab PO BEDTIME carbidopa-levodopa 25-100 mg tablet extended release 1 tab PO BEDTIME carbidopa-levodopa 25-100 mg tablet 0.5 tab PO BEDTIME entacapone 200 mg tablet 200 mg PO 6XD Rx Instructions: administer at the same time as l-dopa/carbidopa dose 5x/day and 1/2 tab at 3am ferrous sulfate 325 mg (65 mg iron) tablet 325 mg PO Q OTHER DAY Rx Instructions: Take 1 tab by mouth 3x/week cholecalciferol (vitamin D3) 50 mcg (2,000 unit) capsule 50 mcg PO BID magnesium oil 1 spray topical 4-6XD PRN (Reason: muscle spasms) Qty: 150 3RF clobetasol 0.05 % solution 1 applic topical BEDTIME Qty: 25 2RF Rx Instructions: Apply to back of head at bedtime for itching metronidazole [Metrogel] 1 % gel 1 applic TOP DAILY Qty: 60 11RF clonazepam 0.5 mg tablet 0.25 mg PO BID Qty: 30 3RF Rx Instructions: 1/4 - 1 tab twice daily for anxiety and panic Referrals: Iris Peters ARNP [Primary Care Provider] - Kd Hart MD [Non-Staff] - Visit Report Forms: Patient Portal/API <Kasey Mansfield DO - Last Filed: 11/16/21 22:00> Cosign ED Attending Cosignature Attestation: I was immediately available in the department for consultation. Documentation has been reviewed.
[2021-11-10 16:13] LABS: Amorphous Sediment Urine 2+; Bacteria Urine Few (2-10); Culture Indicated Urine Specimen Cultured; RBC Urine None Seen (0-5/HPF); WBC Urine 1-5/HPF (0-5/HPF)
[2021-11-10 16:13] LABS: Troponin I < 0.012 ng/mL (0.01-0.034)
[2021-11-10 16:17] LABS: CKMB % Relative Index 0.7 % (1.5-5.0); Creatine Kinase MB 1.09 ng/mL (<2.37)
[2021-11-10] MEDS: LACTATED RINGERS 1,000 ML 1000 ML IV (16:37)
[2021-11-10] MEDS: hydrOXYzine pamoate 25 MG CAPSULE PO (16:37)
[2021-11-10 16:51] LABS: Lactate (Lactic Acid) 1.3 mmol/L (0.7-2.1)
[2021-11-10 16:56] LABS: Magnesium 1.9 mg/dL (1.6-2.3)
[2021-11-10] MEDS: TRIMETH/SULFA 160/800 (DS) TABLET 1 TAB PO (18:37)
== END 2021-11-10 19:04 | disposition home or self-care (01) ==
PROVIDERS: Emergency Medicine; Emergency Provider Nurse Practitioner Critical Care Medicine; Family Provider Nurse Practitioner; PCP Nurse Practitioner
DX: F41.0 Panic disorder [episodic paroxysmal anxiety] (principal); N30.00 Acute cystitis without hematuria; G20 Parkinson's disease; R07.9 Chest pain, unspecified
CPT/HCPCS: 36415; 71045; 80053; 81003; 81015; 82550; 82553; 83605; 83690; 83735; 84484; 85025; 87086; 93005; 96360; 99284

== ENCOUNTER → 2021-12-14 13:28 | Outpatient (CLI) | payer MEDICARE, OTHER, SELFPAY ==
[2021-12-14 14:09] LABS: Appearance Urine UA CLEAR; Bilirubin Urine UA NEGATIVE (NEGATIVE); Color Urine UA ORANGE; Glucose Urine UA TRACE g/dL (Negative); Ketones Urine UA TRACE (NEGATIVE); Leukocyte Esterase Urine UA TRACE (NEGATIVE); Nitrite Urine UA NEGATIVE (Negative); Occult Blood Urine UA NEGATIVE (Negative); Protein Urine UA NEGATIVE (Negative); Specific Gravity Urine UA 1.015 (1.000-1.035); Urobilinogen Urine UA 0.2 E.U./dL (0.2); pH Urine UA 6.5 (4.5-8.0)
[2021-12-14 14:35] LABS: Bacteria Urine Few (2-10); RBC Urine None Seen (0-5/HPF); Squamous Epithelial Cell Urine 1-5 /HPF (0-5/HPF); WBC Urine 1-5/HPF (0-5/HPF)
[2021-12-14 14:36] LABS: Calcium Oxalate Crystals Urine Few; Culture Indicated Urine Specimen Cultured
== END ==
PROVIDERS: Family Provider Nurse Practitioner; PCP Nurse Practitioner; Referring Provider Nurse Practitioner; Visit Provider Nurse Practitioner
DX: R30.0 Dysuria (principal); R41.0 Disorientation, unspecified
CPT/HCPCS: 81001; 87086